=== PATIENT | female | born 2000 | race Caucasian/White ===

== ENCOUNTER 2021-11-30 10:33 | Outpatient (CLI) | payer OTHER, SELFPAY ==
[2021-11-30 14:16] LABS: Hepatitis B Surface Antigen* Negative (Negative)
[2021-11-30 14:26] LABS: HIV 1/2/P24 Combo Screen* Negative (Negative)
[2021-11-30 14:34] LABS: Hepatitis C Virus Antibody* Negative (Negative)
[2021-11-30 14:41] LABS: Chlamydia DNA Amplified* NOT DETECTED (No Detected); GC DNA Amplified* NOT DETECTED (No Detected)
[2021-12-01 17:42] LABS: Varicella-Zoster Virus Ab, IgG 600.8 IV
[2021-12-01 17:45] LABS: Rubella Antibody IgG 13.8 IU/mL
[2021-12-01 21:11] LABS: Rapid Plasma Reagin (RPR) Non Reactive (Non Reactive)
== END 2021-11-30 10:34 | disposition home or self-care (01) ==
PROVIDERS: PCP Family Medicine; Visit Provider Advanced Practice Midwife
DX: Z34.91 Encounter for supervision of normal pregnancy, unspecified, first trimester (principal); Z3A.09 9 weeks gestation of pregnancy
CPT/HCPCS: 76817; 86592; 86703; 86762; 86787; 86803; 86850; 86900; 86901; 87086; 87340; 87491; 87591; 88174

== ENCOUNTER 2022-02-19 08:14 | Outpatient (CLI) | payer OTHER, SELFPAY ==
--- NOTE | 2022-02-19 08:15 | CRLHL7_ITS ---
For Patients: As a result of the Century Cures Act, medical imaging exams and procedure reports are released immediately into your electronic medical record. You may view this report before your referring provider. If you have questions, please contact your health care provider. OBSTETRICAL ULTRASOUND, 02/19/2022 LMP: 09/30/2021. STEVAN by LMP: 07/07/2022. GA: 20 w, 2 d. . P: 0. INDICATION: Supervision of normal . FINDINGS: position: Vertex. Cervix: Visualized. Technique: Transvaginal. Length of closed cervix: 4.5 cm. Placenta/cord: Posterior. Technique: Transabdominal. Umbilical Cord: 3-vessel cord. Placenta insertion: Central. Amniotic Fluid: 1.7 cm SDP (greater than/equal to: 2- less than 8 cm). 5.9 cm LUCAS. SURVEY: Observed Structures Cerebellum: No. Cisterna Magna: No. Nuchal Fold: No. Lateral Ventricle Yes. CSP: Yes. Midline Falx: Yes. Choroid Plexus: Yes. Spine: Yes. Abdomen: Stomach: Yes. Abd Cord Insertion: Yes. Urinary Bladder: Yes. Kidneys: Yes. Diaphragm: Yes. Face: Nose/Lips: No. Orbital view: No. Profile: Yes. Limbs: Upper Extremities: Yes. Lower Extremities: Yes. Hands: Yes. Feet: Yes. Vascular: Four-Chamber Heart: Yes. LVOT: Yes. RVOT: poorly seen 3VV: No. 3VTV: No. BPD: 4.6 cm. 19 w 6 d, 32 percent. HC: 17.5 cm. 20 w 0 d, 29 percent. AC: 15.6 cm. 20 w 5 d, 59 percent. FL: 3.5 cm. 21 w 1 d, 73 percent. FL/AC: 22.75 percent. HC/AC Ratio: 1.12. Heart rate: 152 beats per minute. age by this US: 20 w 3 d. STEVAN by this US: 07/06/2022. EFW: 377.86g. Weight: 13 oz. Percentile by STEVAN: 74 percent. The presence of oligohydramnios limits anatomic survey. The placenta is located posteriorly however, the edge of the placenta is difficult to assess in relationship to the cervix given lack of amniotic fluid. Additionally, the facial views and posterior fossa measurements could not be obtained. The right ventricular outflow tract is suboptimally seen. IMPRESSION: 1) Single live intrauterine gestation with composite gestational age of 20 weeks 3 days. STEVAN of 07/06/2022. 2) Oliqohydramnios. Single deepest pocket is 1.7 cm. LUCAS 5.9 cm. Limited anatomic survey given lack of amniotic fluid. Poor visualization right ventricular outflow tract. The face is poorly seen. The posterior fossa measurements could not be obtained. Posterior fossa poorly seen. Additionally, the placenta relationship to the cervix could not be visualized as well. Lorena Martinez M.D. Diagnostic/Breast Radiologist [email or web address] Transcribed: 11:45 a.m. JR/Dictated by: Lorena Martinez MD @ 02/20/2022 8:52:00 AM (Electronically Signed)
--- OUTSIDE RECORDS SUMMARY | 2022-02-19 08:17 | XMS_ITS | Clinical Summary ---
:2000 Author Organization [facility] [place] [address] Care Team Providers Name Role Phone Abhay Miller Primary Care Provider Unavailable Allergies Active Allergy Reactions Severity Noted Date Comments Sulfa (Sulfonamide Antibiotics) Hives High 0 Medications Medication Sig Dispensed Refills Start Date End Date Status loratadine (CLARITIN) Place 1 tablet on 0 12/08/2009 Active 10 mg orally the tongue once disintegrating daily. tabletIndications: Allergic rhinitis, cause unspecified fluticasone (50 mcg per Inhale 2 Sprays 1 Bottle 11 05/27/2015 Active actuation) nasal into both solution nostrils once (FLONASE)Indications: daily. . Other allergic rhinitis albuterol HFA (PRO-AIR; INHALE TWO PUFFS 18 g 0 2 Active VENTOLIN; PROVENTIL) 90 BY MOUTH EVERY mcg/actuation FOUR HOURS inhalerIndications: NEEDED FOR COUGH Exercise induced bronchospasm fluticasone propionate Inhale 2 Puffs by 10.6 g 2 2 Active (FLOVENT) 44 mouth 2 times mcg/Actuation daily. inhalerIndications: Mild persistent asthma without complication Active Problems Problem Noted Date Mild persistent asthma without complication 03/31/2013 Allergic rhinitis, cause unspecified 12/08/2009 Immunizations Name Administration Dates Next Due DTaP 01/13/2004, 1998, 1998, 06/1997 DTaP-HIB (TriHIBIT) 07/25/1999 HIB-HepB (Comvax) 1998, 1998 Hepatitis B (Peds) 1998 Inactivated Polio Vaccine 01/13/2004, 1998, 1998 , 1998 MMR 01/13/2004, 07/25/1999 Tdap 01/12/2011 Varicella Vaccine 01/12/2011, 01/30/1999 Family History Medical History Relation Name Comments Good Health Brother Good Health Father Allergies Maternal Aunt Allergies Maternal Grandfather Allergies Maternal Uncle Good Health Mother Good Health Sister Relation Name Status Comments Brother Father Maternal Aunt Maternal Grandfather Maternal Uncle Mother Sister Social History Tobacco Use Types Packs/Day Years Used Date Never Smoker Smokeless Tobacco: Never Used Tobacco Cessation: Counseling Given: Yes Alcohol Use Standard Drinks/Week Comments Yes 0 (1 standard drink = 0.6 oz pure alcoho l) Alcohol Habits Answer Date Recorded How often do you have a drink containing alcohol? Monthly or less 03/31/2019 How many drinks containing alcohol do you have on a 1 or 2 03/31/2019 typical day when you are drinking? How often do you have six or more drinks on one Less than mo nthly 03/31/2019 occasion? Comment: Not asked Sex Assigned at Date Recorded Not on file Obstetrics History Para Term AB IAB SAB Ectopic Multiple Living Live Births 1 1 1 Date Outcome GA Total Labor/2nd/3rd Weight Sex Delivery Anes PTL Guillermina A 1 A5 Name Clin Labor 09/02 Last Filed Vital Signs Vital Sign Reading Time Taken Comments Blood Pressure 130/84 05/25/2021 10:14 AM PROPOSAL EDITOR Pulse 94 05/25/2021 10:14 AM PROPOSAL EDITOR Temperature 36.7 ??C (98.1 ??F) 05/27/2015 3:48 PM PROPOSAL EDITOR Respiratory Rate - - Oxygen Saturation 95% 05/25/2021 10:14 AM PROPOSAL EDITOR Inhaled Oxygen Concentration - - Weight 117.5 kg (259 lb) 05/25/2021 10:14 AM PROPOSAL EDITOR Height 170.7 cm (5' 7.21) 05/25/2021 10:14 AM PROPOSAL EDITOR Body Mass Index 40.32 05/25/2021 10:14 AM PROPOSAL EDITOR Plan of Treatment Health Maintenance Due Date Last Done Comments COVID-19 vaccine series (#1) 1998 Pneumococcal series for age 19-64 (1 01/12/2004 - PCV) HPV series for age 9-26 (1 - 2-dose 2009 series) Hepatitis C screening for age 18-79 01/12/2016 Chlamydia for age 16-24 03/31/2020 03/31/2019 Tetanus booster 01/12/2021 01/12/2011 Influenza for age 9-49 01/18/2022 Pap test for age 21-65 03/31/2022 03/31/2019 BMI (ht and wt on same day) for age 0105/25/2022 05/25/2021, 03/31/2019 18+ Depression screening for age 12+ 05/25/2022 05/25/2021, 04/2019, 05/27/2015 Tdap Completed 01/12/2011 Results Not on filefrom Last 3 Months Insurance Payer Benefit Plan / Subscriber ID Effective Dates Phone Addre ss Type Group MEDICA MEDICA CHOICE [id number] 2021-Present [address] [place] [address] Care Teams Medical Research Associate Relationship Specialty Start Date End Date Abhay Miller PCP - General 06/20/20
== END 2022-02-19 08:15 | disposition home or self-care (01) ==
LOC: US 08:15
PROVIDERS: PCP Family Medicine; Visit Provider Advanced Practice Midwife
DX: O41.02X0 Oligohydramnios, second trimester, not applicable or unspecified (principal); Z3A.20 20 weeks gestation of pregnancy
CPT/HCPCS: 76805; 76817

== ENCOUNTER 2022-07-11 03:52 | Outpatient (CLI) | payer OTHER, SELFPAY ==
[2022-07-11 04:10] VITALS: BP 126/68; PULSE 103; RESP 18; TEMP 36.6
[2022-07-11 04:55] LABS: Amnisure Rom* Negative
[2022-07-11] MEDS: hydrOXYzine pamoate 25 MG CAPSULE 100 MG PO (05:54)
[2022-07-11] MEDS: MORPHINE 10 MG/ML inj IM (05:54)
--- NOTE | 2022-07-18 14:43 | PC.OBNST ---
NST Note NST Note Start: 07/11/22 04:00 Freq: ONCE Status: Discharge Protocol: Document 07/11/22 07:30 MMB (Rec: 07/18/22 14:43 MMB [id number]) NST Note 2 Para (# of births) 0 EDC 07/11/22 Gestational Age In Weeks & Days 41 Weeks & 0 Days Patient Presented with Complaint(s) of Contractions/cramping Other Complaints Late entry: patient is 40.4 at time of this documentation Reactive Yes Appropriate for Gestational Age Yes RN Ja Mcgee RN Date 07/11/22 Reactive Yes Appropriate for Gestational Age Yes TONY Hagan RN Date 07/11/22 OB NST charge Yes Complete NST Note via Write Note Yes The provider's electronic signature indicates the NST is reactive/appropriate for gestational age. *Note to provider: If an addendum is required, open the patient's chart and click on the note under the Nurse/Allied Health tab.
== END 2022-07-11 07:53 | disposition home or self-care (01) ==
LOC: OB OUT 03:53 → OB 03:55
PROVIDERS: PCP Family Medicine; Visit Provider Family Medicine
DX: O47.1 False labor at or after 37 completed weeks of gestation (principal); Z3A.40 40 weeks gestation of pregnancy
CPT/HCPCS: 59025; 84112; 99213; A9270; J2270

== ENCOUNTER 2022-07-12 06:15 | Inpatient (IN) | payer OTHER, SELFPAY ==
[2022-07-11 22:59] VITALS: BP 129/64; PULSE 95; RESP 18; TEMP 36.6
[2022-07-12] VITALS (50 sets, daily range): BP systolic 98–141; BP diastolic 49–79; PULSE 95–133; RESP 18; TEMP 36.4–37.1; BMI 41.5
[2022-07-12] MEDS: MORPHINE 10 MG/ML inj IM (01:38)
[2022-07-12] MEDS: hydrOXYzine pamoate 25 MG CAPSULE 100 MG PO (01:38)
[2022-07-12] MEDS: AMPICILLIN 2 GM in 0.9 % SODIUM CHLORIDE Mini-bag 100 ML IVPB (06:56)
[2022-07-12] MEDS: LACTATED RINGERS 1000 ML 1,000 ML 125 ML IV ×3 (06:56→15:25)
[2022-07-12 08:28] LABS: SARS PCR* Negative SARS-CoV-2 (Negative)
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
[2022-07-12] MEDS: OXYTOCIN 30 unit/500 ML in NS 30 UNIT/500 ML BAG IVPB (10:57)
[2022-07-12] MEDS: AMPICILLIN 1 GM in 0.9 % SODIUM CHLORIDE Mini-bag 100 ML IVPB ×3 (10:59→19:16)
[2022-07-12 11:30] LABS: Basophils Absolute Auto 0.02 K/uL (0.00-0.30); Basophils Percent Auto 0.2 % (0.0-3.0); Eosinophils Absolute Auto 0.07 K/uL (0.00-0.50); Eosinophils Percent Auto 0.7 % (0.0-7.0); Hematocrit 28.2 % (33.0-51.0); Immature Granulocytes Abs Auto 0.04 K/uL (0.00-0.30); Immature Granulocytes Pct Auto 0.4 %; Lymphocytes Percent Auto 11.7 % (20-44); Mean Corpuscular HGB Conc 32 gm/dL (32-36); Mean Corpuscular Hemoglobin 27 pg (26-34); Mean Corpuscular Volume 84 fL (80-100); Platelet Count* 275 K/uL (140-440); RDW Coefficient of Variation % 14.5 % (11.5-15.5); Red Blood Count 3.37 m/uL (4.00-5.20); Slide Review Reflex No; White Blood Count* 10.59 K/uL (4.50-11.00)
--- NOTE | 2022-07-12 13:15 | PM.ANBPRC ---
[facility] Medical History (Updated 07/12/22 @ 09:22 by Tammy Ryder MD) Incomplete spontaneous Surgical History (Updated 11/30/21 @ 14:58 by Jana Ferrara CNM) No history of previous surgery [place] teeth extracted Family History (Updated 11/30/21 @ 15:00 by Jana Ferrara CNM) Mother Miscarriage Diabetes Father Healthy adult Social History (Updated 11/30/21 @ 15:02 by Jana Ferrara CNM) Narrative: Non-smoker Are you following a diet prescribed by a doctor: No Are you following a special diet: No Previous occupational history: Beautician Known occupational exposures/hazards details: concerns about chemical exposure from products at work Highest level of school completed/degree received: Associate degree: occupational, technical, vocational program Physical activity type: walking and bicycling Physical activity type details: stationary bike How many days of moderate to strenuous exercise, like a brisk walk, did you do in the last 7 days: 1 Smoking Status: Never smoker Do you use any of these nicotine containing products: None Non-prescribed substance use: denies use Caffeine: No Little interest or pleasure in doing things: not at all Feeling down, depressed, or hopeless: not at all Meds Home Medications and Allergies Home Medications Medication Instructions Recorded Confirmed Type albuterol sulfate 90 mcg/actuation 2 puff inhalation PRN 11/30/21 07/11/22 History aerosol inhaler fluticasone propionate 44 2 puff inhalation PRN 11/30/21 07/11/22 History mcg/actuation HFA aerosol inhaler (Flovent HFA) prenat.vits,francheska,[id number] 1 tab PO QDAY 12/25/21 07/11/22 History aspirin 81 mg chewable tablet 81 mg PO QDAY 02/19/22 07/11/22 History Allergies Allergy/AdvReac Type Severity Reaction Status Date / Time Sulfa Antibiotics Allergy Unknown Uncoded 02/19/22 08:30 Results Labs Labs: Laboratory Results - last 24 hr 07/12/22 07/12/22 07/12/22 07:41 11:20 11:20 WBC 10.59 RBC 3.37 L Hgb 9.0 L Hct 28.2 L MCV 84 MCH 27 MCHC 32 RDW Coeff of Ghassan 14.5 Plt Count 275 Neut % (Auto) 83.0 H Lymph % (Auto) 11.7 L [place] % (Auto) 4.0 Eos % (Auto) 0.7 Baso % (Auto) 0.2 Neut # (Auto) 8.80 H Lymph # (Auto) 1.20 [place] # (Auto) 0.40 Eos # (Auto) 0.07 Baso # (Auto) 0.02 SARS-CoV-2 (PCR) Negative SARS-CoV-2 Blood Type A Positive Antibody Screen NEGATIVE Vital Signs Vital Signs: Last Vital Signs Temp 98.8 F 07/12/22 11:01 Pulse 117 H 07/12/22 13:14 Resp 18 07/12/22 06:35 BP 125/55 L 07/12/22 13:14 Weight: 123.831 kg Height: 172.72 cm Anesthesia Procedures Epidural Insertion Patient Location: OB Start Time: 12:30 Stop Time: 13:15 Start Date: 07/12/22 Stop Date: 07/12/22 Reason for Block: procedure for pain Patient Position: sitting Performed By: Vinay Davidson Preanesthetic Checklist: IV checked, risks and benefits discussed, surgical consent, monitors and equipment checked, pre-op evaluation, timeout performed and anesthesia consent Prep: chlorhexidine gluconate Monitoring: blood pressure monitoring, continuous pulse oximetry and heart rate Approach: midline Vertebral Space: lumbar (1-5) Epidural Technique: ALESHIA air Needle Type: Tuohy needle Injection Technique: continuous catheter Needle gauge: 17 Needle Length (cm): 10 cm Needle Insertion Depth (cm): 7 Catheter Gauge: 19 Catheter Type: multi-orifice Catheter at skin depth (cm): 13 Test Dose Result: negative and lidocaine 1.5% with epinephrine 1 to 200,000
[2022-07-12] MEDS: ROPIVACAINE 0.2% 100 ml 100 ML 12 MG EPIDURAL (13:17)
[2022-07-12] MEDS: LIDOCAINE 2% (PF) 5 ML VIAL EPIDURAL (13:17)
[2022-07-12] MEDS: ROPIVACAINE 0.2 % PF 10 ML INJ 20 MG EPIDURAL (13:17)
[2022-07-12] MEDS: PHENYLEPHRINE 100 MCG/ML SYRINGE IVP (14:06)
[2022-07-12] MEDS: LIDOCAINE 1 % PF 30 ML INJECTION (20:59)
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
[2022-07-12] MEDS: IBUPROFEN 600 MG TABLET PO (21:30)
[2022-07-13 00:30] VITALS: BP 134/74; PULSE 118; RESP 16; TEMP 36.8; O2SAT 97
[2022-07-13 04:00] VITALS: BP 119/74; PULSE 92; RESP 15; TEMP 36.9; O2SAT 98
[2022-07-13 08:00] VITALS: BP 127/75; PULSE 99; RESP 18; TEMP 36.3; O2SAT 97
[2022-07-13 08:45] LABS: Hemoglobin* 8.3 gm/dL (12.0-16.0)
[2022-07-13 11:50] VITALS: BP 112/68; PULSE 112; RESP 18; O2SAT 99
--- NOTE | 2022-07-13 17:30 | PM.OBPNVD1 ---
OB - PN:Subj Subjective Time Seen by Provider: 17:30 Date Seen: 07/13/22 Patient comments OB post-: no complaints and pain well controlled [place] infant status: feeding status: exclusively OB - PN: Obj Exam Physical Exam: Vital signs: Temp Pulse Resp BP Pulse Ox O2 Del Method 97.4 F L 112 H 18 112/68 99 07/13/22 08:00 07/13/22 11:50 07/13/22 11:50 07/13/22 11:50 07/13/22 11:50 07/13/22 11:50 Constitutional: Constitutional: no acute distress and cooperative Routine HEENT Exam: Head: Present atraumatic and normal inspection Routine Respiratory Exam: Respiratory: Present CTA bilaterally; Absent crackles or rales Routine Cardiovascular Exam: Cardiovascular: Present RRR, S1 and S2; Absent murmur Routine Abdominal Exam: Fundus: Present firm Routine Neurological Exam: Neurological: Present alert Routine Psychiatric Exam: Psychiatric: Present normal affect OB - PN: Obj Data Labs Labs: Laboratory Results - last 24 hr 07/13/22 08:36 Hgb 8.3 L OB - PN: A/P Vaginal Delivery Assessment and Plan (1) : Status: Acute (2) GBS (group B Streptococcus carrier), +RV culture, currently : Status: Acute (3) Anemia affecting : Status: Acute Plan - routine cares- - Add iron supplementation - continue breast feeding support. Plan day: 1 Plan: routine care
[2022-07-13 20:15] VITALS: BP 112/75; PULSE 97; RESP 18; TEMP 36.4; O2SAT 96
[2022-07-14 00:30] VITALS: BP 106/72; PULSE 100; RESP 18; TEMP 36.8; O2SAT 97
--- NOTE | 2022-07-14 10:04 | P.DS_ITS ---
DS: Providers Provider Time Seen by Provider: 10:05 Date Seen: 07/14/22 Date of admission: 07/12/22 06:15 Primary care physician: Bud Conde MD Admitting Clinician: Tammy Ryder MD Attending Physician on discharge: Brandie Whittaker MD Date of Discharge: 07/14/22 DS: Diagnosis Discharge Diagnosis (1) : Status: Acute (2) Oligohydramnios: Status: Acute (3) GBS (group B Streptococcus carrier), +RV culture, currently : Status: Acute (4) Anemia affecting : Status: Acute Exam Narrative: Exam Narrative: General appearance: Well-appearing adult female sitting up in bed. Alert, oriented appropriate. No acute distress. HEENT: EOMI, no conjunctival injection or discharge. Mucous membranes moist. Neck: Supple Cardiovascular: Regular rate and rhythm, no rubs, murmurs or extra heart sounds. Pulmonary: Clear to auscultation bilaterally. No wheezes, rales or rhonchi. Abdomen: Soft, nontender, nondistended. fundus at the level of the umbilicus. MSK: Moves all extremities. Extremities: Warm and well perfused. Trace edema in the lower extremities bilaterally. Skin: Warm and well perfused. No rashes present on the exposed skin. Neuro: He cranial nerves 2-12 grossly intact. No observable deficits. Psych: Appropriate affect. Const: Vital Signs, click to edit/add: Vital Signs - 24 hr 07/13/22 11:50 07/13/22 20:15 07/14/22 00:30 Temperature 97.6 F 98.2 F Pulse Rate [Blood Pressure Cuff] 112 H 97 100 Respiratory Rate 18 18 18 Blood Pressure [Ri ght Arm] 112/68 112/75 106/72 Pulse Oximetry 99 96 97 Oxygen Delivery Me thod Room Air Room Air Room Air OB - DS: Summary Hospital Course Hospital Course: The patient is a 22 year old G 2 now P 1 at 40+5 weeks gestation that was admitted to the Center on 07/12/22 for labor. She had an uncomplicated vaginal delivery on 07/13/22 . GBS positive and received adequate abx. Hgb 8.3 after delivery and she will be discharged with oral iron supplementation. She delivered a viable female infant. She is breast feeding. the patient has done well. [place] Gender: Female Time Spent with Patient Time attestation: Total time spent providing and/or coordinating discharge services: Discharge Plan Discharge Disposition: Home, Self-Care Date of Admission: 07/12/22 06:15 Attending Provider on Discharge: Brandie Wang Primary Care Provider: Bud Conde Condition: Stable Anticipated Discharge Date/Time: 07/14/22 09:58 Discharge Medications: New acetaminophen 500 mg Tablet 1,000 mg PO Q6H PRN30 Days Qty: 30 0RF docusate sodium 100 mg Capsule 100 mg PO DAILY 30 Days Qty: 30 0RF ibuprofen 600 mg Tablet 600 mg PO Q6H PRN30 Days Qty: 30 0RF ferrous gluconate 324 mg (38 mg iron) tablet 324 mg PO DAILY Qty: 30 1RF Continued albuterol sulfate 90 mcg/actuation HFA aerosol inhaler 2 puff inhalation PRN Label Comments: INHALE TWO PUFFS BY MOUTH EVERY FOUR HOURS NEEDED FOR COUGH fluticasone propionate [Flovent HFA] 44 mcg/actuation HFA aerosol inhaler 2 puff inhalation PRN prenat.vits,francheska,[id number] Tablet 1 tab PO QDAY Discontinued aspirin 81 mg tablet,chewable 81 mg PO QDAY Discharge Orders: Discharge Order (Routine); Ordered 07/14/22 Ordered By: Brandie Wang Patient Education: OB Vaginal/Breast Feeding Activity Level: Activity as Tolerated Discharge Diet: Regular Follow Up Appointments: Bud Conde MD [Primary Care Provider] - (F/u Dr. Ryder for 6 week post- visit) Forms: [employer] Info Instructions
== END 2022-07-14 12:00 | disposition home or self-care (01) | DRG 806 ==
LOC: OB OUT 07:25 → OB 07:25
PROVIDERS: Admitting Provider Family Medicine; PCP Family Medicine; Visit Provider Family Medicine
DX: O99.824 Streptococcus B carrier state complicating childbirth (principal); O41.03X0 Oligohydramnios, third trimester, not applicable or unspecified; O70.1 Second degree perineal laceration during delivery; O99.02 Anemia complicating childbirth; D64.9 Anemia, unspecified; Z3A.40 40 weeks gestation of pregnancy; Z37.0 Single live birth
CPT/HCPCS: 01967; 36415; 85018; 85025; 86850; 86900; 86901; 87635; 99213; A9270; J0290; J2001; J2270; J2370; J2795; J7120

== ENCOUNTER 2022-08-22 13:59 | Emergency (ER) | payer OTHER, SELFPAY ==
[2022-08-22 14:09] VITALS: BP 119/76; PULSE 87; RESP 18; TEMP 35.8; O2SAT 95; BMI 38.7
[2022-08-22 14:22] VITALS: BP 111/72; PULSE 77; RESP 18; O2SAT 96
--- NOTE | 2022-08-22 14:27 | CRLHL7_ITS ---
For Patients: As a result of the Century Cures Act, medical imaging exams and procedure reports are released immediately into your electronic medical record. You may view this report before your referring provider. If you have questions, please contact your health care provider. INDICATION: Right-sided thoracic pain TECHNIQUE: Chest 2 views. COMPARISON: None FINDINGS: Cardiovascular and mediastinum: Heart size and vasculature are normal in caliber and appearance. Mediastinum is within normal limits. Lungs and pleural spaces: Lungs are clear. No sign of infiltrate or mass. No sign of pleural effusion. No pneumothorax. Bones and soft tissues: Grossly normal thoracic spine. IMPRESSION: No acute pulmonary or cardiac abnormalities. Grossly normal thoracic spine. Dictated by Claude Arteaga MD @ 08/22/2022 3:15:34 PM Dictated by: Claude Arteaga MD @ 08/22/2022 15:15:41 (Electronically Signed)
--- NOTE | 2022-08-22 14:29 | ED.GENADULT ---
HPI - General Adult General Time Seen by Provider: 14:29 Date Seen: 08/22/22 Chief complaint: Abdominal Pain Stated complaint: Back, stomach pain, 6w Time Seen by Provider: 08/22/22 14:03 Source: patient Mode of arrival: ambulatory Limitations: no limitations History of Present Illness HPI narrative: Patient is a 22-year-old female who has got history of bronchospasm, she had a vaginal 6 weeks ago. Things are going well for her. Would last few days she has had some right periscapular pain, comes and goes, gone it sometimes and present significantly at other times it was little bit worse this morning. She has had no fever chills cough, no abdominal pain, no lochia any further no chills or fever. She has not any COVID symptoms no cough , no shortness of breath Related Data Home Medications Medication Instructions Recorded Confirmed albuterol sulfate 90 mcg/actuation 2 puff inhalation PRN 11/30/21 07/11/22 aerosol inhaler fluticasone propionate 44 2 puff inhalation PRN 11/30/21 07/11/22 mcg/actuation HFA aerosol inhaler (Flovent HFA) prenat.vits,francheska,[id number] 1 tab PO QDAY 12/25/21 07/11/22 Previous Rx's Medication Instructions Recorded acetaminophen 500 mg tablet 1,000 mg PO Q6H PRN 30 days #30 07/14/22 tabs docusate sodium 100 mg capsule 100 mg PO DAILY 30 days #30 caps 07/14/22 ferrous gluconate 324 mg (38 mg 324 mg PO DAILY #30 tabs 07/14/22 iron) tablet ibuprofen 600 mg tablet 600 mg PO Q6H PRN 30 days #30 tabs 07/14/22 Allergies Allergy/AdvReac Type Severity Reaction Status Date / Time Sulfa (Sulfonamide Allergy Verified 08/22/22 14:09 Antibiotics) Review of Systems Status of ROS: Reports: 6 or more systems reviewed and unremarkable except as noted in History and below [facility] Medical History 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 without complication (ICD-10) Surgical History No history of previous surgery [place] teeth extracted ?K08.409 - Partial loss of teeth, unspecified cause, unspecified class (ICD-10) Family History Mother Miscarriage Diabetes Father Healthy adult Social History Narrative: Non-smoker Are you following a diet prescribed by a doctor: No Are you following a special diet: No Previous occupational history: Beautician Known occupational exposures/hazards details: concerns about chemical exposure from products at work Highest level of school completed/degree received: Associate degree: occupational, technical, vocational program Physical activity type: walking and bicycling Physical activity type details: stationary bike How many days of moderate to strenuous exercise, like a brisk walk, did you do in the last 7 days: 1 Smoking Status: Never smoker Do you use any of these nicotine containing products: None Second hand tobacco smoke exposure: No How often do you have a drink containing alcohol: never How often do you have six or more drinks on one occasion: Never AUDIT-C Alcohol total score: 0 Non-prescribed substance use: denies use Caffeine: No Little interest or pleasure in doing things: not at all Feeling down, depressed, or hopeless: not at all service: No Exam Narrative: Exam Narrative: Objective: Patient is no apparent distress very pleasant Noncyanotic Vital signs unremarkable O2 sat 96% room air Patient has clear chest bilaterally to auscultation She has some mild palpable tenderness along her rhomboid muscle on the right Good peripheral perfusion Neurologic nonfocal Const: Vital Signs, click to edit/add: Vital Signs - 24 hr 08/22/22 14:09 08/22/22 14:22 Temperature 96.4 F L Pulse Rate [Pulse Oximeter] 87 77 Respiratory Rate 18 18 Blood Pressure [Le ft Upper Arm] 119/76 111/72 Pulse Oximetry 95 96 Oxygen Delivery Me thod Room Air Room Air Course Vital Signs Vital signs: Initial Vital Signs Temperature 96.4 F L 08/22/22 14:09 Temperature Source Temporal Artery Scan 08/22/22 14:09 Pulse Rate 87 08/22/22 14:09 Pulse Rhythm Regular 08/22/22 14:09 Respiratory Rate 18 08/22/22 14:09 Blood Pressure 119/76 08/22/22 14:09 Blood Pressure Mean 90 08/22/22 14:09 Blood Pressure Position Supine 08/22/22 14:09 Pulse Oximetry 95 08/22/22 14:09 Oxygen Delivery Method Room Air 08/22/22 14:09 Vital Signs Temperature 96.4 F L 08/22/22 14:09 Pulse Rate 87 08/22/22 14:09 Respiratory Rate 18 08/22/22 14:09 Blood Pressure 119/76 08/22/22 14:09 Pulse Oximetry 95 08/22/22 14:09 Oxygen Delivery Method Room Air 08/22/22 14:09 Temperature 96.4 F L 08/22/22 14:09 Pulse Rate 77 08/22/22 14:22 Respiratory Rate 18 08/22/22 14:22 Blood Pressure 111/72 08/22/22 14:22 Pulse Oximetry 96 08/22/22 14:22 Oxygen Delivery Method Room Air 08/22/22 14:22 Medical Decision Making MDM Narrative Medical decision making narrative: Patient is a 22 year white female who has had a 6 week ago vaginal the patient at this time has some rhomboid muscle thoracic spine discomfort. On and off at times better with Advil this morning. History of bronchospasm as well. I do not hear any wheezing or other abnormality now. I think an x-ray be appropriate to exclude other pulmonary pathology such as pneumothorax or pneumonia. I doubt these are present. But I do think that some anti-inflammatory if he has earned x-ray is negative would be appropriate as well even a Medrol Dosepak might be helpful. Please see addendum Addendum: Patient describes her discomfort in her chino rhomboid area on the right. She also reports to me that she has had some epigastric tenderness intermittently. On examination now she has no specific point tenderness in her abdomen and no rebound no palpable mass. I think at this point I would be reasonable to observe try the ibuprofen for her back. She can take some antacid as well. If she continues to have symptoms or other concern then recommend blood work as well as an ultrasound of her abdomen rule out gallbladder issue, but at this point I do not think that is obvious and would monitor symptoms. Discharge Plan Discharge Clinical Impression: Back pain, thoracic Patient Disposition: Home w/ Parent or Adult Condition: Stable Additional Instructions: Light activity, Advil 3 3 times a day for the next 5 days, follow-up with primary care in the next 2-3 days for reassessment certainly sooner change concerns worsening return to ED. Patient comfortable plan will follow up as directed. Would recommend an antacid such as Tums as well Activity Level: Light activity Discharge Diet: Regular Prescriptions: No Action albuterol sulfate 90 mcg/actuation HFA aerosol inhaler 2 puff inhalation PRN Patient Comments: INHALE TWO PUFFS BY MOUTH EVERY FOUR HOURS NEEDED FOR COUGH fluticasone propionate [Flovent HFA] 44 mcg/actuation HFA aerosol inhaler 2 puff inhalation PRN prenat.vits,francheska,[id number] Tablet 1 tab PO QDAY acetaminophen 500 mg Tablet 1,000 mg PO Q6H PRN30 Days Qty: 30 0RF docusate sodium 100 mg Capsule 100 mg PO DAILY 30 Days Qty: 30 0RF ibuprofen 600 mg Tablet 600 mg PO Q6H PRN30 Days Qty: 30 0RF ferrous gluconate 324 mg (38 mg iron) tablet 324 mg PO DAILY Qty: 30 1RF Stand Alone Forms: [employer] Info Instructions
== END 2022-08-22 15:00 | disposition home or self-care (01) ==
PROVIDERS: Emergency Provider Family Medicine; PCP Family Medicine
DX: R10.9 Unspecified abdominal pain (principal); M54.6 Pain in thoracic spine
CPT/HCPCS: 71046; 99283

== ENCOUNTER 2022-09-04 19:57 | Observation (INO) | payer OTHER, SELFPAY ==
[2022-09-04 20:02] VITALS: BP 117/66; PULSE 106; RESP 18; TEMP 37.2; O2SAT 97
[2022-09-04] MEDS: LACTATED RINGERS 1000 ML 1,000 ML 200 ML IV (20:30)
--- NOTE | 2022-09-04 20:52 | P.IMHP_ITS ---
Hospitalist- H&P: HPI History of Present Illness Time Seen by Provider: 20:52 Date Seen: 09/04/22 Chief complaint: Direct Admit Narrative: Altagracia Rodriguez is a 22 year old female who is six weeks and about a week out from a lap ric and ERCP who developed fevers and night sweats. Altagracia delivered a healthy girl on 07/12/2022 by normal spontaneous vaginal delivery that was augmented Pitocin. About a week after she delivered her baby, she developed right flank pain that worsened over next 4 weeks. On 08/24/2022 she was found to have choledocholithiasis for which she was sent up to [facility]. On 08/26/2022 she had a laparoscopic cholecystectomy and the next day she had an ERCP with biliary stenting. She was sent home Saturday. She had some cold sweats that day before leaving the hospital, but her temperature at the hospital was fine. Since then every evening she gets chills, feels feverish with malaise and then in the middle of the night will wake up ?sweating bullets.? She has some incisional pain, but it has been improving. She does also note some epigastric pain that started after surgery. Since coming home from the hospital she has had 3-4 very watery stools each day. There is no blood or melena. She has been following a low-fat diet since the ERCP and is finding it difficult to get enough calories per breast-feeding. Since being in the hospital a week ago she has been struggling with breast-feeding. She also feels thirsty and dehydrated. 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 without complication (ICD-10) Vaginal delivery (~05/2022) ?O80 - Encounter for full-term uncomplicated delivery (ICD-10) Surgical History (Updated 09/04/22 @ 22:12 by Jessica Barnes MD) H/O dilation and curettage ?Z98.890 - Other specified postprocedural states (ICD-10) History of ERCP (~08/27/22) ?Z98.890 - Other specified postprocedural states (ICD-10) Hx laparoscopic cholecystectomy (~08/26/22) ?Z90.49 - Acquired absence of other specified parts of digestive tract (ICD- 10) [place] teeth extracted ?K08.409 - Partial loss of teeth, unspecified cause, unspecified class (ICD- 10) Family History Mother Miscarriage Diabetes Father Healthy adult Social History (Updated 09/04/22 @ 22:18 by Jessica Barnes MD) Narrative: . Non-smoker. Does not drink alcohol or use recreational drugs. 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 Are you following a diet prescribed by a doctor: No Are you following a special diet: No Previous occupational history: Beautician Known occupational exposures/hazards details: concerns about chemical exposure from products at work Highest level of school completed/degree received: Associate degree: occupational, technical, vocational program Physical activity type: walking and bicycling Physical activity type details: stationary bike How many days of moderate to strenuous exercise, like a brisk walk, did you do in the last 7 days: 1 Smoking Status: Never smoker Do you use any of these nicotine containing products: None Second hand tobacco smoke exposure: No How often do you have a drink containing alcohol: never How often do you have six or more drinks on one occasion: Never AUDIT-C Alcohol total score: 0 Non-prescribed substance use: denies use Caffeine: No Little interest or pleasure in doing things: not at all Feeling down, depressed, or hopeless: not at all service: No Meds Home Medications and Allergies Home Medications Medication Instructions Recorded Confirmed Type albuterol sulfate 90 mcg/actuation 2 puff inhalation PRN 11/30/21 09/04/22 History aerosol inhaler prenat.vits,francheska,[id number] 1 tab PO QDAY 12/25/21 09/04/22 History Allergies Allergy/AdvReac Type Severity Reaction Status Date / Time Sulfa (Sulfonamide Allergy Verified 08/22/22 14:09 Antibiotics) Exam Narrative: Exam Narrative: General: No acute distress. Awake alert oriented x3. HEENT: Normocephalic atraumatic, pupils equally round and reactive to light and accommodation. Oropharynx clear. Mucous membranes are slightly dry. No cervical lymphadenopathy, thyromegaly or carotid bruits. No JVD. Cardiovascular: Regular rate and rhythm. No murmurs, gallops, or rubs. Chest: No increased work of breathing. Clear to auscultation bilaterally. No crackles or wheezes. Abdomen: Laparoscopic surgical wounds are healing and without erythema. Some bruising near the right upper quadrant, within expectations postoperatively from a laparoscopic cholecystectomy. Bowel sounds present. Soft, nondistended, expected tenderness in the right upper quadrant. More tender in the epigastrium. No hepatosplenomegaly or masses. Extremities: No edema, no cyanosis or clubbing. Skin: Breasts have no induration, abnormal drainage, or dimpling. No jaundice, no pallor, candidal rash is present under left breast, areola and nipple are not involved. Her baby is with her today. I do not appreciate any thrush in the baby's mouth. Const: Vital Signs, click to edit/add: Vital Signs - 24 hr 09/04/22 20:02 Temperature 99 F Pulse Rate [Left R adial] 106 H Respiratory Rate 18 Blood Pressure [Ri ght Arm] 117/66 Pulse Oximetry 97 Oxygen Delivery Me thod Room Air Documenting provider has reviewed patient's vital signs: yes Hospitalist - H&P: Result Labs Labs: Ordering Physician: Tammy Ryder M.D. Date of Service: 09/04/22 Procedure(s): CT abdomen pelvis w con Accession Number(s): [id number] cc: Tammy Ryder M.D.~ For Patients: As a result of the Century Cures Act, medical imaging exams and procedure reports are released immediately into your electronic medical record. You may view this report before your referring provider. If you have questions, please contact your health care provider. INDICATION: Postop fever. TECHNIQUE: CT abdomen and pelvis acquired with 98 cc Isovue 370 IV contrast. COMPARISON: 08/24/2022. FINDINGS: Lower chest: Unremarkable. Liver: Unremarkable. Normal in size and attenuation. No suspicious masses. Gallbladder and bile ducts: Gallbladder is absent. There is pneumobilia. No biliary dilatation. Common bile duct stent is in satisfactory position. Pancreas: Unremarkable. No mass or inflammation. Spleen: Unremarkable. Normal in size. No masses. Adrenal glands: Unremarkable. No nodules. Kidneys: Unremarkable. No suspicious masses, stones, or hydronephrosis. GI tract: Wall thickening present in the transverse colon. Remainder of the GI tract is within normal limits in caliber and appearance. A new metallic linear object is at the origin of the appendix, this could represent a surgical clip. Vasculature: Abdominal aorta is normal in caliber. Mesenteric arteries are patent. Lymph nodes: No lymphadenopathy. Peritoneum/Abdominal Wall: Large area of edema or inflammation is in the central mesenteric fat as demonstrated on series 2, image 71, this is new. Moderate free fluid in the pelvis. No free air. Pelvis: Unremarkable. Bones: Unremarkable for age. IMPRESSION: 1. There are postoperative changes from recent cholecystectomy. No postoperative complications evident in the gallbladder fossa. 2. A new large area of inflammation/edema in the central mesentery. This could represent a large area of fat necrosis. No sign of abscess. 3. Wall edema in the transverse colon adjacent to the mesenteric inflammatory process is present. This could represent secondary colitis which is favored over a primary infection. 4. New linear metallic object at the origin of the appendix could represent a piece of the biliary stent or other surgical clip. Please note that all CT scans at this facility use dose modulation, iterative reconstruction, and/or weight-based dosing when appropriate to reduce radiation dose to as low as reasonably achievable. Dictated by Ruben Squires MD @ 09/04/2022 4:51:30 PM (Electronically Signed) Assessment and Plan Assessment and plan (1) Postoperative fever: Problem comment: Possibly multifactorial including post ERCP pancreatitis and/or necrosis of the omentum. Status: Acute (2) Post-ERCP acute pancreatitis: Problem comment: Admitted for observation with bowel rest and IV fluids of LR at 200 mL/hours. I have ordered clear liquid diet and Ensure Clear since she is breast-feeding and will need some calories. Have also ordered a nutrition consult. Recheck labs in the morning. Status: Suspected (3) Fat necrosis of omentum: Problem comment: I spoke with Dr. Almanza who recommended conservative management. Status: Acute (4) Acute diarrhea: Problem comment: Possibly secondary to recent laparoscopic cholecystectomy verses antibiotics given for the surgery. Check C diff, stool studies. Status: Acute (5) Breast feeding status of mother: Status: Acute (6) Intertriginous candidiasis: Problem comment: Spoke with Dr. Severino Sorensen from [facility] who stated that nystatin cream or Diflucan can be used in breast-feeding mothers. Since she is on clears for pancreatitis, I will use nystatin cream. Status: Acute (7) Volume depletion: Problem comment: She is breast-feeding, having diarrhea, and he likely has pancreatitis. Give high rate IV fluids for rehydration. Encourage clear liquids. Status: Acute Plan VTE prophylaxis: Encourage frequent ambulation.
[2022-09-04] MEDS: SODIUM CHLORIDE 0.9 % (FLUSH) 10 ML SYRINGE 5 ML IVF (22:24)
[2022-09-04 23:00] VITALS: BP 110/57; PULSE 108; RESP 18; TEMP 36.6; O2SAT 97
[2022-09-05] MEDS: LACTATED RINGERS 1000 ML 1,000 ML 200 ML IV ×3 (02:32→12:29)
[2022-09-05 03:00] VITALS: BP 110/57; PULSE 103; RESP 18; TEMP 36.6; O2SAT 97
--- NOTE | 2022-09-05 06:34 | PC.NURSE ---
ADMISSION NOTE: Pt direct admit, pleasant and cooperative, A&O. Denies pain, SOB, CP, and N/V. Up independent in room. Pt's baby and pt's friend stayed the night. VSS on RA. Tolerating a clear liquid diet.
[2022-09-05 07:00] VITALS: BP 115/68; PULSE 96; RESP 18; TEMP 36.8; O2SAT 93
[2022-09-05 07:00] LABS: Basophils Percent Auto 0.2 % (0.0-3.0); Eosinophils Percent Auto 1.9 % (0.0-7.0); Hematocrit 27.5 % (33.0-51.0); Hemoglobin* 8.8 gm/dL (12.0-16.0); Immature Granulocytes Pct Auto 0.4 %; Lymphocytes Percent Auto 15.5 % (20-44); Mean Corpuscular HGB Conc 32 gm/dL (32-36); Mean Corpuscular Hemoglobin 27 pg (26-34); Mean Corpuscular Volume 83 fL (80-100); Platelet Count* 464 K/uL (140-440); RDW Coefficient of Variation % 18.4 % (11.5-15.5); Red Blood Count 3.32 m/uL (4.00-5.20); White Blood Count* 12.91 K/uL (4.50-11.00)
[2022-09-05 07:03] LABS: Slide Review Reflex No
[2022-09-05 07:07] LABS: Albumin* 3.2 g/dL (3.3-5.0); Chloride* 107 mmol/L (96-114)
[2022-09-05 07:08] LABS: Potassium* 3.9 mmol/L (3.6-5.1); Sodium* 136 mmol/L (135-149)
[2022-09-05 07:10] LABS: Alkaline Phosphatase* 95 U/L (40-150); Aspartate Amino Transferase* 40 U/L (12-35); Bilirubin Total* 0.7 mg/dL (0.1-1.5); Blood Urea Nitrogen* 11 mg/dL (5-24); Carbon Dioxide* 22 mmol/L (20-32); Creatinine* 0.6 mg/dL (0.5-1.5); Estimated Glomerular Filt Rate 128 ml/min; Lipase* 236 U/L (23-300); Total Protein* 6.3 g/dL (6.0-8.3)
[2022-09-05 07:11] LABS: Alanine Aminotransferase* 70 U/L (4-35); Calcium* 8.4 mg/dL (8.4-10.6); Glucose* 102 mg/dL (60-115)
[2022-09-05 07:16] LABS: C.Difficile Negative (Negative); CDIFFEPI 027 Presumptive Negative (Negative)
[2022-09-05] MEDS: MULTIVITAMIN/MINERALS 1 TABLET 1 TAB PO (09:43)
[2022-09-05] MEDS: NYSTATIN CREAM 30 GM 1 APPLIC TOPICAL ×2 (09:43→15:00)
[2022-09-05 11:00] VITALS: BP 115/69; PULSE 103; RESP 18; TEMP 37.6; O2SAT 98
--- NOTE | 2022-09-05 13:20 | PM.GSCN ---
History of Present Illness Consult details Date Seen: 09/05/22 Consult date: 09/05/22 Narrative: Patient is a 22-year-old female who presented to her primary care provider for postop fevers. Ten days earlier she was hospitalized at [facility] for acute cholecystitis and choledocholithiasis. During that hospital stay she underwent a laparoscopic cholecystectomy with intraoperative cholangiogram and subsequent ERCP with biliary stent. Since Saturday she has been having intermittent high fevers, although the fever curve has been improving. Her highest fever was on Saturday and 102.6. Her last fever was yesterday and 100.5. She has also been having some mild abdominal pain since surgery, but this has also been improving. The pain is just above her belly button. She is currently only needing Tylenol and ibuprofen for pain control. She is otherwise tolerating a regular diet and having regular bowel movements. No other concerns. On workup by her primary care provider she had evidence on CT scan of a large omental infarction. On reviewing her surgical operative report from 08/26/2022 it does appear that there were omental adhesions to the gallbladder that were sharply and bluntly taken down during the operation. Her past medical history is also significant for recent vaginal delivery 8 weeks ago, she is currently . Review of Systems Status of ROS: Reports: 6 or more systems reviewed and unremarkable except as noted in History and below [facility] Medical History (Updated 09/04/22 @ 22:31 by Jessica Barnes MD) Allergic rhinitis ?J30.9 - Allergic rhinitis, unspecified (ICD-10) Asthma ?J45.909 - Unspecified asthma, uncomplicated (ICD-10) 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 without complication (ICD-10) Vaginal delivery (~05/2022) ?O80 - Encounter for full-term uncomplicated delivery (ICD-10) Surgical History (Updated 09/04/22 @ 22:12 by Jessica Barnes MD) H/O dilation and curettage ?Z98.890 - Other specified postprocedural states (ICD-10) History of ERCP (~08/27/22) ?Z98.890 - Other specified postprocedural states (ICD-10) Hx laparoscopic cholecystectomy (~08/26/22) ?Z90.49 - Acquired absence of other specified parts of digestive tract (ICD-10) [place] teeth extracted ?K08.409 - Partial loss of teeth, unspecified cause, unspecified class (ICD-10) Family History Mother Miscarriage Diabetes Father Healthy adult Social History (Updated 09/04/22 @ 22:18 by Jessica Barnes MD) Narrative: . Non-smoker. Does not drink alcohol or use recreational drugs. 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 Are you following a diet prescribed by a doctor: No Are you following a special diet: No Previous occupational history: Beautician Known occupational exposures/hazards details: concerns about chemical exposure from products at work Highest level of school completed/degree received: Associate degree: occupational, technical, vocational program Physical activity type: walking and bicycling Physical activity type details: stationary bike How many days of moderate to strenuous exercise, like a brisk walk, did you do in the last 7 days: 1 Smoking Status: Never smoker Do you use any of these nicotine containing products: None Second hand tobacco smoke exposure: No How often do you have a drink containing alcohol: never How often do you have six or more drinks on one occasion: Never AUDIT-C Alcohol total score: 0 Non-prescribed substance use: denies use Caffeine: No Little interest or pleasure in doing things: not at all Feeling down, depressed, or hopeless: not at all service: No Meds Home Medications and Allergies Allergies Allergy/AdvReac Type Severity Reaction Status Date / Time Sulfa (Sulfonamide Allergy Verified 08/22/22 14:09 Antibiotics) Exam Narrative: Exam Narrative: General: Alert and oriented, no acute distress. Nontoxic in appearance. Respiratory: Equal breath rise bilaterally, maintained on room air CV: Regular rhythm rate, well perfused Abdomen: Mild tenderness to deep palpation epigastric, no rebound or guarding. Abdomen is soft and nondistended. Const: Vital Signs, click to edit/add: Vital Signs - 24 hr 09/04/22 20:02 09/04/22 23:00 09/05/22 07:00 Temperature 99 F 97.8 F Pulse Rate [Left R adial] 106 H 108 H 96 Respiratory Rate 18 18 18 Blood Pressure [Ri ght Arm] 117/66 110/57 L Pulse Oximetry 97 97 Oxygen Delivery Me thod Room Air Room Air 09/05/22 03:00 09/05/22 07:00 09/05/22 11:00 Temperature 97.8 F 98.2 F 99.6 F Pulse Rate [Left R adial] 103 H 96 103 H Respiratory Rate 18 18 18 Blood Pressure [Ri ght Arm] 110/57 L 115/68 115/69 Pulse Oximetry 97 93 98 Oxygen Delivery Me thod Room Air Room Air Room Air Results Labs Labs: Abnormal lab results 09/05/22 Range/Units 06:15 WBC 12.91 H (4.50-11.00) K/uL RBC 3.32 L (4.00-5.20) m/uL Hgb 8.8 L (12.0-16.0) gm/dL Hct 27.5 L (33.0-51.0) % RDW Coeff of Ghassan 18.4 H (11.5-15.5) % Plt Count 464 H (140-440) K/uL Neut % (Auto) 75.0 H (42.0-72.0) % Lymph % (Auto) 15.5 L (20-44) % Neut # (Auto) 9.70 H (1.7-7.0) K/uL AST 40 H (12-35) U/L ALT 70 H (4-35) U/L Albumin 3.2 L (3.3-5.0) g/dL Diabetes panel 09/05/22 Range/Units 06:15 Sodium 136 (135-149) mmol/L Potassium 3.9 (3.6-5.1) mmol/L Chloride 107 (96-114) mmol/L Carbon Dioxide 22 (20-32) mmol/L BUN 11 (5-24) mg/dL Creatinine 0.6 (0.5-1.5) mg/dL Glucose 102 (60-115) mg/dL Calcium 8.4 (8.4-10.6) mg/dL AST 40 H (12-35) U/L ALT 70 H (4-35) U/L Alkaline Phosphatase 95 (40-150) U/L Total Protein 6.3 (6.0-8.3) g/dL Albumin 3.2 L (3.3-5.0) g/dL Calcium panel 09/05/22 Range/Units 06:15 Calcium 8.4 (8.4-10.6) mg/dL Albumin 3.2 L (3.3-5.0) g/dL Pituitary panel 09/05/22 Range/Units 06:15 Sodium 136 (135-149) mmol/L Potassium 3.9 (3.6-5.1) mmol/L Chloride 107 (96-114) mmol/L Carbon Dioxide 22 (20-32) mmol/L BUN 11 (5-24) mg/dL Creatinine 0.6 (0.5-1.5) mg/dL Glucose 102 (60-115) mg/dL Calcium 8.4 (8.4-10.6) mg/dL Adrenal panel 09/05/22 Range/Units 06:15 Sodium 136 (135-149) mmol/L Potassium 3.9 (3.6-5.1) mmol/L Chloride 107 (96-114) mmol/L Carbon Dioxide 22 (20-32) mmol/L BUN 11 (5-24) mg/dL Creatinine 0.6 (0.5-1.5) mg/dL Glucose 102 (60-115) mg/dL Calcium 8.4 (8.4-10.6) mg/dL Total Bilirubin 0.7 (0.1-1.5) mg/dL AST 40 H (12-35) U/L ALT 70 H (4-35) U/L Alkaline Phosphatase 95 (40-150) U/L Total Protein 6.3 (6.0-8.3) g/dL Albumin 3.2 L (3.3-5.0) g/dL All other labs normal. Imaging Abdomen CT scan report/results: report reviewed and image reviewed Assessment and Plan Assessment and plan (1) Fat necrosis of omentum: Problem comment: I spoke with Dr. Almanza who recommended conservative management. Status: Acute Plan Patient is a 22-year-old female status post laparoscopic cholecystectomy, ERCP and biliary stent on 08/26/2022. On workup there is evidence of a large area of fat necrosis. This is most likely omentum, with low concern for mesenteric infarction or ischemia at this time. The colon and bowel all appear well perfused with no evidence of pneumatosis. At this time she is nontoxic, has a benign exam and is reportingimprovement of her symptoms. This area is at risk for developing an infection, but there is no current fluid collection or evidence of abscess. Recommend continued conservative management. She was also advised to follow-up with her surgeon in the next 1-2 weeks. If the patient's abdominal pain worsens, her fevers do not improve and/or she has increasing inflammatory markers would recommend interval repeat imaging and reevaluation.
--- NOTE | 2022-09-05 14:23 | PC.NURSE ---
pt advanced to Regular diet, fluids at 200cc/hr. oracle distribution consultant in room to assist with 6 week old and feedings. pt pleasant and cooperative. denies pain. indep in room. nystatin to redness under right breast. Plan for pt to d/c today
--- NOTE | 2022-09-05 14:32 | PM.DS1 ---
DS: Providers Provider Date Seen: 09/05/22 Date of admission: 09/04/22 19:57 Primary care physician: Tammy Ryder MD Admitting Clinician: Jessica Barnes MD Attending Physician on discharge: Elio Coleman MD Date of Discharge: 09/05/22 DS: Diagnosis Discharge Diagnosis (1) Fat necrosis of omentum: Status: Acute Problem details: Radiographically has fat necrosis of the omentum as a cause of her recent pain and fever following her laparoscopic cholecystectomy on August 26 and her ERCP on August 27. No CT evidence for pancreatitis. Normal lipase. Patient doing well. Conservative management as an outpatient. (2) Postoperative fever: Status: Acute Problem details: Suspected to be due to fat necrosis of the omentum. Doing quite well now. Pain is controlled with Tylenol and ibuprofen. Eating a normal diet. Outpatient follow-up with General surgery and return to the emergency department if getting worse. (3) Acute diarrhea: Status: Acute Problem details: Possibly secondary to recent laparoscopic cholecystectomy. C diff test is negative. DS: Summary Hospital Course Hospital Course: 22-year-old female who is approximately 8 weeks and 10 days after laparoscopic cholecystectomy and 9 days after ERCP presents with abdominal pain and fever for the last 7 days. Initially suspected to have pancreatitis room secondary to ERCP. CT scan however showed large area of 0 was thought to be necrosis of the omentum in her epigastrium. No significant abnormalities of the gallbladder fossa or pancreas. Normal lipase and bilirubin and only mildly elevated AST an ALT. Patient was managed conservatively and was feeling much better today. Her fever seems to be resolved. She is tolerating regular diet. She did have some diarrhea and had a C diff test which was negative. She had consultation with our general surgeon, Dr. Almanza. She recommend ongoing management with observation and outpatient follow-up with her surgeon next week. Return to the emergency department for worsening symptoms, especially increasing abdominal pain or fever Status at Discharge Functional status at discharge: independent ambulation Overall status at discharge: patient is progressing back to baseline Time Spent with Patient Time attestation: Total time spent providing and/or coordinating discharge services: Time spent: Greater than 30 minutes Exam Narrative: Exam Narrative: She is alert and appears in no distress. Mood and affect are bright. Respirations are clear to auscultation. Cardiovascular: S1, S2, regular rate and rhythm. No murmur gallop or rub. Abdomen: Bowel sounds active. Laparoscopic incisions in her abdomen are well healed without erythema or drainage. Abdomen is soft. She has mild mid epigastric tenderness. No peritonitis. Extremities without edema. She moves all 4 extremities well. Good perfusion. Const: Vital Signs, click to edit/add: Vital Signs - 24 hr 09/04/22 20:02 09/04/22 23:00 09/05/22 07:00 Temperature 99 F 97.8 F Pulse Rate [Left R adial] 106 H 108 H 96 Respiratory Rate 18 18 18 Blood Pressure [Ri ght Arm] 117/66 110/57 L Pulse Oximetry 97 97 Oxygen Delivery Me thod Room Air Room Air 09/05/22 03:00 09/05/22 07:00 09/05/22 11:00 Temperature 97.8 F 98.2 F 99.6 F Pulse Rate [Left R adial] 103 H 96 103 H Respiratory Rate 18 18 18 Blood Pressure [Ri ght Arm] 110/57 L 115/68 115/69 Pulse Oximetry 97 93 98 Oxygen Delivery Me thod Room Air Room Air Room Air Documenting provider has reviewed patient's vital signs: yes DS: Data Data Completed and Pending Completed studies during hospitalization: Procedures Delivery of Products of Conception, External Approach (07/12/22) Repair Perineum Muscle, Open Approach (07/12/22) Labs on day of discharge: Labs from last 24 hours 09/05/22 09/05/22 09/04/22 06:30 06:15 20:18 WBC 12.91 H RBC 3.32 L Hgb 8.8 L Hct 27.5 L MCV 83 MCH 27 MCHC 32 RDW Coeff of Ghassan 18.4 H Plt Count 464 H Neut % (Auto) 75.0 H Lymph % (Auto) 15.5 L [place] % (Auto) 7.0 Eos % (Auto) 1.9 Baso % (Auto) 0.2 Neut # (Auto) 9.70 H Lymph # (Auto) 2.00 [place] # (Auto) 0.90 Eos # (Auto) 0.20 Baso # (Auto) 0.00 Sodium 136 Potassium 3.9 Chloride 107 Carbon Dioxide 22 BUN 11 Creatinine 0.6 Estimated GFR 128 Glucose 102 Calcium 8.4 Total Bilirubin 0.7 AST 40 H ALT 70 H Alkaline Phosphatase 95 Total Protein 6.3 Albumin 3.2 L Lipase 236 Stl C.difficile Tox PCR Negative St C. diff Tox Epid 027 Presumptive Negative Ova & Parasites Pending Imaging CT scan - abdomen: Radiologist's impression: [facility] [address] [place] [address] Diagnostic Imaging Report Attending Dr: Tammy Ryder M.D. Ordering Physician: Tammy Ryder M.D. Date of Service: 09/04/22 Procedure(s): CT abdomen pelvis w con Accession Number(s): [id number] cc: Tammy Ryder M.D.~ For Patients:? As a result of the Cures Act, medical imaging exams and procedure reports are released immediately into your electronic medical record.? You may view this report before your referring provider.? If you have questions, please contact your health care provider. INDICATION: Postop fever. TECHNIQUE: CT abdomen and pelvis acquired with 98 cc Isovue 370 IV contrast. COMPARISON: 08/24/2022. FINDINGS: Lower chest: Unremarkable. Liver: Unremarkable. Normal in size and attenuation. No suspicious masses. Gallbladder and bile ducts: Gallbladder is absent. There is pneumobilia. No biliary dilatation. Common bile duct stent is in satisfactory position. Pancreas: Unremarkable. No mass or inflammation. Spleen: Unremarkable. Normal in size. No masses. Adrenal glands: Unremarkable. No nodules. Kidneys: Unremarkable. No suspicious masses, stones, or hydronephrosis. GI tract: Wall thickening present in the transverse colon. Remainder of the GI tract is within normal limits in caliber and appearance. A new metallic linear object is at the origin of the appendix, this could represent a surgical clip. Vasculature: Abdominal aorta is normal in caliber. Mesenteric arteries are patent. Lymph nodes: No lymphadenopathy. Peritoneum/Abdominal Wall: Large area of edema or inflammation is in the central mesenteric fat as demonstrated on series 2, image 71, this is new. Moderate free fluid in the pelvis. No free air. Pelvis: Unremarkable. Bones: Unremarkable for age. IMPRESSION: 1. There are postoperative changes from recent cholecystectomy. No postoperative complications evident in the gallbladder fossa. 2. A new large area of inflammation/edema in the central mesentery. This could represent a large area of fat necrosis. No sign of abscess. 3. Wall edema in the transverse colon adjacent to the mesenteric inflammatory process is present. This could represent secondary colitis which is favored over a primary infection. 4. New linear metallic object at the origin of the appendix could represent a piece of the biliary stent or other surgical clip. Please note that all CT scans at this facility use dose modulation, iterative reconstruction, and/or weight-based dosing when appropriate to reduce radiation dose to as low as reasonably achievable. Dictated by Ruben Squires MD @ 09/04/2022 4:51:30 PM (Electronically Signed) Discharge Plan Discharge Disposition: Home, Self-Care Date of Admission: 09/04/22 19:57 Attending Provider on Discharge: Dejan Coleman Consulting Providers: Gabi Almanza Primary Care Provider: Tammy Ryder Condition: Improved Anticipated Discharge Date/Time: 09/05/22 13:10 Discharge Medications: Continued acetaminophen 500 mg Tablet 1,000 mg PO Q6H PRN30 Days Qty: 30 0RF ibuprofen 600 mg Tablet 600 mg PO Q6H PRN30 Days Qty: 30 0RF Discharge Orders: Discharge Order (Routine); Ordered 09/05/22 Ordered By: Dejan Coleman Additional Instructions: See your surgeon, Dr. Murray, at [facility] next week. If you are getting worse, more pain, more fever or otherwise feeling ill, return to the emergency room for repeat evaluation. Activity Level: No Restrictions Discharge Diet: Regular Follow Up Appointments: Tammy Ryder MD [Primary Care Provider] - Forms: [employer] Info Instructions
[2022-09-05 14:51] VITALS: BMI 38.7
[2022-09-05 14:52] VITALS: RESP 18; TEMP 37.6
--- NOTE | 2022-09-05 17:38 | PC.NURSE ---
Discharge: patient discharged at 1558, IV removed intact. Belongings list and discharge intructions signed. patient verbalized understanding.
[2022-09-08 15:27] LABS: Ova and Parasite, Fecal Negative (Negative)
== END 2022-09-05 15:58 | disposition home or self-care (01) ==
PROVIDERS: Admitting Provider Family Medicine; PCP Family Medicine; Visit Provider Family Medicine
DX: K65.4 Sclerosing mesenteritis (principal); R50.82 Postprocedural fever; R19.7 Diarrhea, unspecified; R74.01 Elevation of levels of liver transaminase levels; R63.30 Feeding difficulties, unspecified; E86.0 Dehydration; B37.2 Candidiasis of skin and nail; Z39.1 Encounter for care and examination of lactating mother; Z39.2 Encounter for routine postpartum follow-up; Z98.890 Other specified postprocedural states; Z90.49 Acquired absence of other specified parts of digestive tract; R10.9 Unspecified abdominal pain
CPT/HCPCS: 36415; 74177; 80053; 83690; 85025; 87045; 87046; 87177; 87209; 87427; 87493; 96360; 96361; A9153; A9270; G0378; G0379; J7120; Q9967

== ENCOUNTER 2024-03-31 01:38 | Inpatient (IN) | payer BC, SELFPAY ==
[2024-03-31] VITALS (155 sets, daily range): BP systolic 80–147; BP diastolic 39–76; PULSE 97–149; RESP 12–22; TEMP 36.3–37.1; O2SAT 73–100; BMI 44.1
--- OUTSIDE RECORDS SUMMARY | 2024-03-31 01:18 | XMS_ITS | Clinical Summary ---
Author Organization [facility] Address [address] [place], [place] [address] [address] Care Team Providers Care Wood Lathe Operator Name Role Phone No Ref-Primary, Physician Primary Care Provider Active Problems Problem Noted Date Diagnosed Date Asthma 11/04/2023 S/P laparoscopic cholecystectomy 09/10/2022 Elevated LFTs 08/24/2022 Estimated Date of Delivery Comme nts Yes 03/29/2024 Based on last me nstrual period of 06/23/2023 Social History Tobacco Use Types Packs/Day Years Used Date Smoking Tobacco: Never Assessed Tobacco Cessation:Counseling Given: Not Answered Adolescent Education Answer Date Record ed Getting School Help Needed Not on file 02/09 Estimated Date of Delivery Comme nts Yes 03/29/2024 Based on last me nstrual period of 06/23/2023 Sex and Gender Information Value Date Recorded Sex Assigned at Not on file Legal Sex Female 1:05 PM CDT Gender Identity Not on file Sexual Orientation Not on file Plan of Treatment Health Maintenance Due Date Last Done Comments ADVANCE CARE PLANNING 1998 ANNUAL REVIEW OF HM ORDERS 1998 ASTHMA ACTION PLAN 1998 ASTHMA CONTROL TEST 1998 YEARLY PREVENTIVE VISIT 1998 Pneumococcal Vaccine: Pediatrics (0 to 5 Years) and At-Risk Patients (6 to 64 Years) (1 of 2 - PCV) 01/12/2004 HIV SCREENING 2013 HPV IMMUNIZATION (1 - 3-dose series) 2013 HEPATITIS C SCREENING 01/12/2016 DTAP/TDAP/TD IMMUNIZATION (7 - Td or Tdap) 01/12/2021 01/12/2011, 01/13/2004, 07/25/1999, Additional history exists PHQ-2 (once per calendar year) 2023 MATERNAL SCREENING DISCUSSION 09/01/2023 OBGCT (OB) 12/08/2023 COVID-19 Vaccine ( season) 2024 INFLUENZA VACCINE (#1) 2024 GROUP B STREP SCREENING 03/01/2024 PAP 10/14/2026 10/15/2023 HEPATITIS B IMMUNIZATION Completed 999, 1998, 1998 CHLAMYDIA SCREENING Discontinued 08/05/2023 MENINGITIS IMMUNIZATION Aged Out No l onger eligible based on patient's age to complete this topic RSV MONOCLONAL ANTIBODY Aged Out No l onger eligible based on patient's age to complete this topic RSV VACCINE (No Doses Required) Com[place] Care Teams Wood Lathe Operator Relationship Specialty Start Date End Date No Ref-Primary, Physician PCP - General 10/31/23
--- OUTSIDE RECORDS SUMMARY | 2024-03-31 01:18 | XMS_ITS | Clinical Summary ---
Author Organization [facility] Address [place], [place] [address] Care Team Providers Care Software Technical Lead Name Role Phone Tammy Ryder MD Primary Care Provider Allergies Active Allergy Reactions Criticality Noted Date Comments Sulfa (Sulfonamide Antibiotics) Hives High 01/18 Medications Medication Sig Dispensed Refills Start Date End Date Status Breast Pump PurchaseIndications: Supervision of high risk in third trimester Electric breast pump for home use. Gestational age at delivery: TBD weeks. Reason for need: separation from . Length of need: 99 months (lifetime use) 1 Each 06/27/2022 Active simethicone chewable (MYLANTA GAS RELIEF; GAS X) 80 mg chewable tabletIndications:Ch oledocholithiasis Chew 1 Tablet (80 mg) by mouth 4 times daily if needed for Flatulence. Max dose: 500 mg per 24 hrs 30 Tablet 08/29/2022 Active vitamin chewable (NATACHEW) 29 mg iron- 1 mg chew Chew 1 Tablet by mouth once daily. Active ondansetron (ZOFRAN ODT) 4 mg disintegrating tabletIndications:St omatitis,Vomiting and diarrhea,Supervision of high risk in second trimester Place 1 Tablet (4 mg) on the tongue every 8 hours if needed for Nausea/Vomiting. 30 Tablet 11/15/2023 Active Breast Pump PurchaseIndications: Breast feeding status of mother Electric breast pump for home use. Gestational age at delivery: TBD. Reason for need: separation from infant. Length of need: 99 months (lifetime use) 1 Each 01/07/2024 Active famotidine (PEPCID) 20 mg tabletIndications:He artburn during in third trimester Take 1 Tablet (20 mg) by mouth 2 times daily if needed for GI Upset or Heartburn. 90 Tablet 01/21/2024 Active azithromycin (ZITHROMAX) 250 mg tabletIndications:Pe rtussis exposure Take 500 mg (2 tabs) by mouth on day 1, then 250 mg (1 tab) daily for days 2-5. 6 Tablet 03/24/2024 Active Problems Problem Noted Date Diagnosed Date Pap smear for cervical cancer screening 10/29/19 Overview (10/29/2023): 09/2023 NIL/HPV negative. Plan: Pap/HPV due 09/2028. [facility], Supervision of high-risk 09/17/19 Overview (09/17/2023): SRO MPP - Completed [x] Patient name: Altagracia Rodriguez : 2000 Age: 23 y.o. Date of SRO: 09/17/2023 Estimated Date of Delivery: 03/29/24 Gest Age: 12w2d G/P: Current BMI: 41 Requested Discussion Topics: BMI REFERRING PROVIDER/CLINIC: Tammy Ryder MD Primary MD approves scheduling of recommended ultrasounds/testing: Yes Please schedule the following: [x] Abbasi [] Multiples: [] Consult [x] Ultrasound: - Level 2 (including echo) - 60 minutes [] Lab: [] Genetic Counseling [] Before [] After []15 [] 30 []45 []NT []CVS []Amnio [x] BMI > 40 [] Clay Roaster - Language [] [place] Insurance: Location [facility] Any [facility] [] In-person [] Virtual [] Either N/A Comments: RN: Shaista Larios RN Forming Yardage Control Operator: GC: /Provider: Date:09/17/2023 Urgency: at level II time []Can be sooner [] Can be split Altagracia Rodriguez : 2000 [facility] ULTRASOUND/TESTING PATIENT Support person name: ULTRASOUND TYPE: level II REASON FOR VISIT: BMI NEXT VISIT ALERTS: Final STEVAN by LMP LMP Date: Patient's last menstrual period was 06/23/2023 (exact date). STEVAN: 03/29/24 Early US: Date: 08/20/23 GA: 8w2d STEVAN: 03/29/24 PrePregnancy Weight: 279lb Height: 5'7 BMI: 43 PLANS & FUTURE APPOINTMENTS: ULTRASOUND/GROWTH PLAN: - Through: - Growth: Next TESTING PLAN: - Testing: Through DELIVERY PLAN: - Scheduled delivery: - Preferred delivery location: PRIMARY DIAGNOSIS: 23 y.o. Estimated Date of Delivery: 03/29/24 MATERNAL 2022 vaginal delivery PREVIOUS ULTRASOUNDS: (PCP) ECHO: REFERRING PROVIDER/CLINIC LOCATION/FAX #: Tammy Ryder MD General (Family Practice) [address] [facility] [address] Primary provider approves scheduling of recommended ultrasounds/testing: Yes SPECIALISTS/CONSULTS: Include: Specialty MD Clinic Name Phone# [place] and ADDED TO PATIENT CARE TEAM GENETICS: NIPS: AFP: First screen (NT/seq/integ): if positive add .FIRSTABNORMAL Quad screen (Tetra/Triple screen): if positive add .QUADABNORMAL Amniocentesis/CVS: IVF with PGT: Carrier screening: Declines/Not Done CARE COORDINATION: PERTINENT LABS: Labs reviewed? Normal? Blood type: A Rh Positive Antibody screen: Negative Non-[facility] labs need to be entered in [employer]? PERTINENT MEDS: PROCEDURES: IF FGR <10% or EFW <2000 grams: Add FGRPCOM PLAN OF CARE: Original and updated POC 08/05/2023 Overview (03/12/2024): Primary OB patient of Dr. Ryder Preferred name: Altagracia Language/cultural preferences: Surinamese OB HISTORY / PERTINENT MEDICAL HISTORY: Dating by LMP Patient's last menstrual period was 06/23/2023 (exact date). OB History Para Term AB Living 3 1 1 1 1 SAB IAB Ectopic Multiple Live Births 1 1 # Outcome Date GA Lbr Rodriguez/2nd Weight Sex Type Anes PTL Lv 3 Current 2 Term 07/12/22 40w5d F Vag ROMEL 1 SAB 09/02/17 Prior hx Preeclampsia NO HTN NO GDM NO Dystocia NO C/S NO Issues this : BMI>40 MPP consult Social History : FOB/Spouse: [place] Children: daughter Lynette 07/12/22 Work/school: homemaker Substance use: No COURSE: echo: Level 2 US at 20w1d GA: Normal, Anterior placenta, Last estimated weight: 1269g Additional Ultrasounds: 3rd tri growth Sonographic gestational age 28 weeks 6 days and sonographic due date of 03/25/2024. Good correlation with dates. Estimated weight at 53rd percentile. Abdominal circumference 63rd percentile. Vaccination: Flu None Tdap (27-36w) 2010 BMI: Body mass index is 40.88 kg/m??. Pre-eclampsia risk on aspirin? NO LABS: GBS: 36.3 wks GROUP B STREPTOCOCCUS Date Value Ref Range Status 03/04/2024 DETECTED (A) NOT DETECTED Final Comment: Note per CDC guidelines optimal recovery is achieved by swabbing both the lower vagina and rectum (through the anal sphincter). 28wk labs: GLUCOSE,GESTATIONAL Date Value Ref Range Status 01/07/2024 117 70 - 139 mg/dL Final HEMOGLOBIN Date Value Ref Range Status 01/07/2024 10.4 (L) 12.0 - 16.0 g/dL Final TREPONEMA PALLIDUM Date Value Ref Range Status 01/07/2024 Non-Reactive Non-Reactive Final OB labs: ABORH Date Value Ref Range Status 08/05/2023 A Rh Positive Final ANTIBODY SCREEN Date Value Ref Range Status 08/05/2023 Negative Negative Final TREPONEMA PALLIDUM Date Value Ref Range Status 08/05/2023 Non-Reactive Non-Reactive Final RUBELLA IGG ANTIBODY Date Value Ref Range Status 08/05/2023 1.34 >=1.00 Index Final INTERPRETATION Date Value Ref Range Status 08/05/2023 Positive Final Comment: Presence of detectable IgG antibodies. A positive result generally indicates exposure to the virus or previous vaccination, but is not an indication of active infection or stage of disease. HBSAG Date Value Ref Range Status 08/05/2023 Nonreactive Nonreactive Final HEPATITIS C ANTIBODY Date Value Ref Range Status 08/05/2023 Non-Reactive Non-Reactive Final Comment: Please note, per www.CDC.gov: If a patient is known to be at high risk of HCV infection, or is symptomatic, and the physician's suspicion of HCV infection is high, HCV RNA testing is often employed and is of diagnostic value, even after an initial negative anti-HCV test result. HIV-1/HIV-2 SCREEN Date Value Ref Range Status 08/05/2023 Non-Reactive Non-Reactive Final Comment: HIV-1 p24 and HIV-1/HIV-2 Ab Not Detected. HEMOGLOBIN Date Value Ref Range Status 08/05/2023 12.4 12.0 - 16.0 g/dL Final PLATELET COUNT Date Value Ref Range Status 08/05/2023 246 140 - 440 thou/cu mm Final CHLAMYDIA PROBE Date Value Ref Range Status 08/05/2023 Negative Final N GONORRHOEAE PROBE Date Value Ref Range Status 08/05/2023 Negative Final PLAN: plan: Support people at delivery: Circumcision: Feeding plan Contraception: S/P laparoscopic cholecystectomy 09/10/2022 Acute liver injury - mixed pattern 08/24/2022 Supervision of high risk in [facility] 03/23/2022 Overview (06/22/2022): Estimated Date of Delivery: 07/07/22 Patient's last menstrual period was 09/30/2021 (exact date). GBS positive: Component Latest Ref Rng & Units 06/19/2022 Vaginal/Rectal OB Strep B PCR Positive (A) Last Tdap- 01/12/2011 Last Flu vaccine- None Glucose (GTT) result- Component Latest Ref Rng & Units 04/10/2022 HEMOGLOBIN 12.0 - 16.0 g/dL 10.2 (L) MCV 80 - 100 fL 90 GLUCOSE,GESTATIONAL 65 - 140 mg/dL 111 TREPONEMA PALLIDUM Negative Negative Allergies Allergen Reactions ? ? Sulfa (Sulfonamide Antibiotics) Hives OB History Para Term AB Living 2 0 0 0 1 0 SAB IAB Ectopic Multiple Live Births 1 0 0 0 0 # Outcome Date GA Lbr Rodriguez/2nd Weight Sex Delivery Anes PTL Lv 2 Current 1 SAB 09/02/17 Create lab flowsheet for OB labs- Rubella immune Varicella immune RPR non reactive Hemoglobin 12.8 Platelets 290 Hepatitis C negative HBSAg negative HIV negative Gonorrhea Not detected Urine culture: No growth Blood type: A+ Antibody screen negative ?? Ultrasound: Dating ultrasound at 9 weeks with STEVAN of 07/05/21 MFM level 2 ultrasound: 1. Abbasi intrauterine at 22w4d gestational age here for evaluation of anatomy. 2. No anomalies commonly detected by ultrasound were identified in the detailed anatomic survey within the limits of ultrasound, however some views were suboptimal, as described above. 3. Growth parameters and estimated weight were consistent with established dates. 4. The amniotic fluid volume appeared normal. 5. On transabdominal imaging the cervix appears long and closed Past Medical History: . Date ? ? Allergic rhinitis, cause unspecified 12/08/2009 ? ? Exercise induced bronchospasm 03/31/2013 Past Surgical History: . Laterality Date ? ? DILATION AND CURETTAGE for miscarriage at age 17 No data on file. Problems (from 03/14/22 to present) No problems associated with this episode. Leila Julien RN .................... 03/23/2022 2:37 PM Mild persistent asthma without complication 03/20 Allergic rhinitis, cause unspecified 12/08/2009 Estimated Date of Delivery Comme nts Yes 03/29/2024 Based on last me nstrual period of 06/23/2023 (Exact Date) Resolved Problems Problem Noted Date Diagnosed Date Resolved Date Cholelithiasis with choledocholithiasis 08/24/2022 09/10/2022 Encounters Date Type Department Care Team Description 03/25/2024 2:50 PM PATTERN DUPLICATOR OB Encounter [facility] [address] [place] [address] Tammy Ryder MD Care (39w3d) 03/25/2024 Travel 03/24/2024 Telephone [facility] [address] [place] [address] Tammy Ryder MD Results 03/18/2024 1:10 PM CDT OB Encounter [facility] [address] [place] [address] Tammy Ryder MD Care (38w3d) 03/18/2024 Travel 03/13/2024 12:45 PM CDT [facility] [address] [facility] [place] [address] Tammy Ryder MD Care (37w 5d/) 03/13/2024 Travel 03/04/2024 1:10 PM CDT OB Encounter [facility] [address] [facility] [place] [address] Tammy Ryder MD Care (36w3d) 03/04/2024 Travel 03/03/2024 Telephone [facility] [address] [facility] [place] [address] Tammy Ryder MD 02/28/2024 2:00 PM CDT OB Encounter [facility] [address] [place] [address] Tammy Ryder MD Care (35w5d) 02/28/2024 Travel 02/20/2024 2:25 PM CDT OB Encounter [facility] [address] [place] [address] Tammy Ryder MD Care (34w4d/) 02/20/2024 1:00 PM CDT Ancillary Procedure [facility] [address] [place] [address] 02/20/2024 Travel 02/04/2024 2:50 PM CDT OB Encounter [facility] [address] [place] [address] Tammy Ryder MD Care (32w2d) 02/04/2024 Travel 01/21/2024 2:50 PM CDT OB Encounter [facility] [address] [place] [facility] [address] Tammy Ryder MD Care (30w2d) 01/21/2024 Travel 01/07/2024 2:50 PM CDT OB Encounter [facility] [address] [facility] [address] Tammy Ryder MD Care (28w2d) 01/07/2024 1:00 PM CDT Ancillary Procedure [facility] [address] [facility] [address] 01/07/2024 Travel from Last 3 Months Immunizations Name Administration Dates Next Due DTaP 01/13/2004,1998,1998 ,1998 DTaP-HIB (TriHIBIT) 07/25/1999 Dtap-5 Pertussis Antigens 01/13/2004 HIB-HepB (Comvax) [birth year] Hepatitis B (Peds) 2000 Inactivated Polio Vaccine 01/13/2004,1998, 1998,1998 MMR 01/13/2004,07/25/1999 Tdap 01/12/2011 Varicella Vaccine 01/12/2011,01/30/1999 Family History Medical History Relation Name Comments Good Health Brother Good Health Father Allergies Maternal Aunt Allergies Maternal Grandfather Allergies Maternal Uncle Diabetes type II Mother Good Health Mother Good Health Sister Relation Name Status Comments Brother Father Maternal Aunt Maternal Grandfather Maternal Uncle Mother Sister Social History Tobacco Use Types Packs/Day Years Used Date Smoking Tobacco: Never Smokeless Tobacco: Never Tobacco Cessation:Counseling Given: Yes Alcohol Use Standard Drinks/Week Comments Not Currently 0 (1 standard drink = 0.6 oz pur e alcohol) PHQ-2 Answer Date Recorded PHQ-2 TOTAL SCORE 1 09/04/2022 Social Connections Answer Date Recorded Do you often feel lonely or isolated from those around you? 0 08/05/2023 Financial Resource Strain Answer Date R ecorded Difficulty of Paying Living Expenses 3 08/05/2023 Difficulty of Paying Living Expenses Not on file 08/05/2023 Food Insecurity Answer Date Recorded Do you worry your food will run out before you are able to buy more? 1 08/05/2023 Transportation Needs Answer Date Record ed Does lack of transportation keep you from medica l appointments? 1 08/05/2023 Does lack of transportation keep you from work, meetings or getting things that you need? 1 08/05/2023 Housing Stability Answer Date Recorded What is your housing situation today? 1 08/05/2023 Estimated Date of Delivery Comme nts Yes 03/29/2024 Based on last me nstrual period of 06/23/2023 (Exact Date) Sex and Gender Information Value Date Recorded Sex Assigned at Not on file Gender Identity Not on file Sexual Orientation Not on file Obstetrics History Para Term AB IAB SAB Ectopic Multiple Livin g Live Births 3 1 1 1 1 1 1 Date Outcome GA Total Labor Labor/2nd/3rd Weight Sex Type Anes PTL Romel A1 A5 Name Clin 018 SAB 023 Term 40w 5d F Vag Livin g Paisle e Complications:None Delivery Location:Hospital Current Summary Episode Dates Number of Fetuses Estimated Date of Delivery 08/05/2023 - Present (03/31/2024) 03/29/2024 (set by Rossy Roque RN on 08/05/2023 based on Last Menstrual Period on 06/23/2023 (Exact Date)) Dating Summary Based On STEVAN GA Diff Last Menstrual Period on 06/23/2023 (Exact Date) 03/29/2024 Working Alternate STEVAN Entry 03/29/2024 Same Vitals Pregravid Weight Height TWG (As of 03/31/2024) Pregrav id BMI 1.72 m (5' 7.72) Notes Progress Notes - OB Encounte r - 03/25/2024 - GA:39w3d 03/25/2024 - 39w3d - Leeanna Ryder MD Patient is here for routine care at 39w3d Concerns: none No Contractions, bleeding, loss of fluid No Headache, vision changes, edema, right upper quadrant pain. Baby is moving well NST indication: obesity NST: Baseline 140, accels to 160, moderate variability Clymer: 1 contraction in 20 minutes Daughter tested positive for pertussis. MDH recommend prophylactic treatment for her and . Per MDH: Generally, if the mom hasn? t finished her course of abx at time of delivery AND doesn? t have any clinical signs of pertussis, the infant does not need PEP. If mom has developed symptoms by time of delivery and has not finished abx Provider could consider having mom mask around the infant until she has finished abx Provider could also consider giving the abx - but there are some pros and cons to this and should be up to the providers discretion. Again, the CDC thinks this situation is up to the physician and they? ll need to make a decision based on the timing of delivery, etc. Patient will start azithromycin today as well as . Discussed signs/symptoms of labor and when to call Reviewed preeclampsia symptoms Discussed IOL for postdates options. Will reassess at next week after 5 days of antibiotics for pertussis exposure. Tammy Ryder MD .................... 03/25/2024 5:24 PM CC: [facility] ERN DUPLICATOR Progress Notes - OB Encounte r - 03/18/2024 - GA:38w3d 03/18/2024 - 38w3d - Leeanna Ryder MD Patient is here for routine care at 38w3d Concerns: they were exposed to pertussis. Daughter has been coughing x 3-4 weeks. No Contractions, bleeding, loss of fluid No Headache, vision changes, edema, right upper quadrant pain. Baby is moving well NST: Indication-- Obesity NST: Baseline 145, moderate variability, accels to 180. Reactive NST Clymer: 2 contractions in 20 minutes, not felt by patient. Growth at 34 weeks: 61%ile, 2593 grams. Patient's daughter added onto schedule today for Pertussis rule out and treatment. Discussed signs/symptoms of labor and when to call Reviewed preeclampsia symptoms Tmamy Ryder MD .................... 03/18/2024 1:34 PM CC: [facility] Progress Notes - OB Encounte r - 03/13/2024 - GA:37w5d 03/13/2024 - 37w5d - Leeanna Ryder MD Patient is here for routine care at 37w5d Concerns: none No Contractions, bleeding, loss of fluid No Headache, vision changes, edema, right upper quadrant pain. Baby is moving well NST: Baseline 135, accels to 165, moderate variability, no decels Clymer: no contractions Reactive NST Labs today: Results for orders placed or performed in visit on 03/04/24 VAGINAL/RECTAL OB STREP PCR Collection Time: 03/04/24 2:51 PM Specimen: Vaginal/Rectal; Other Result Value Ref Range SOURCE VR GROUP B STREPTOCOCCUS DETECTED (A) NOT DETECTED Hemoglobin today Declines immunizations Discussed signs/symptoms of labor and when to call Reviewed preeclampsia symptoms Tammy Ryder MD .................... 03/13/2024 1:13 PM CC: [facility] Progress Notes - OB Encounte r - 03/04/2024 - GA:36w3d 03/04/2024 - 36w3d - Leeanna Ryder MD Patient is here for routine care at 36w3d Concerns: none No Contractions, bleeding, loss of fluid No Headache, vision changes, edema, right upper quadrant pain. Baby is moving well Labs today- gbs NST: Baseline 140, moderate variability, accels to 175 Clymer: no contractions Reactive NST (Done for obesity) Growth most recently 61%ile. Discussed patient with Dr. Meza, he states she does NOT need anesthesia consultation. Discussed signs/symptoms of labor and when to call Reviewed preeclampsia symptoms Tammy Ryder MD .................... 03/04/2024 1:39 PM CC: [facility] Progress Notes - OB Encounte r - 02/28/2024 - GA:35w5d 02/28/2024 - 35w5d - Leeanna Ryder MD Patient is here for routine care at 35w5d Concerns: none No Contractions, bleeding, loss of fluid No Headache, vision changes, edema, right upper quadrant pain. Baby is moving well NST (indication obesity) Baseline 130, accels to 160, moderate variability Clymer: 1 contraction Reactive NST Labs today- none GBS next week Discussed signs/symptoms of labor and when to call Reviewed preeclampsia symptoms RTC weekly until delivery Tammy Ryder MD .................... 02/28/2024 2:26 PM CC: [facility] Progress Notes - OB Encounte r - 02/20/2024 - GA:34w4d 02/20/2024 - 34w4d - Leeanna Ryder MD Patient is here for routine care at 34w4d Concerns: none BPP 8/8. Growth is 61%ile. No Contractions, bleeding, loss of fluid No Headache, vision changes, edema, right upper quadrant pain. Baby is moving well Labs today- none Discussed signs/symptoms of labor and when to call Reviewed preeclampsia symptoms RTC weekly, will do NST at each visit. Tammy Ryder MD .................... 02/20/2024 2:50 PM CC: [facility] Progress Notes - OB Encounte r - 02/04/2024 - GA:32w2d 02/04/2024 - 32w2d - Leeanna Ryder MD Patient is here for routine care at 32w2d Concerns: none No Contractions, bleeding, loss of fluid No Headache, vision changes, edema, right upper quadrant pain. Baby is moving well Has growth scan/BPP at 34 weeks. Then will start weekly NST with me. Discussed signs/symptoms of labor and when to call Reviewed preeclampsia symptoms RTC in 2 weeks, then weekly thereafter. Tammy Ryder MD .................... 02/04/2024 2:40 PM CC: [facility] Progress Notes - OB Encounte r - 01/21/2024 - GA:30w2d 01/21/2024 - - Leeanna Ryder MD Patient is here for routine care at 30w2d Concerns: has been having more acid reflux. 28 week growth us: IMPRESSION: Sonographic gestational age 28 weeks 6 days and sonographic due date of 03/25/2024. Good correlation with dates. Estimated weight at 53rd percentile. Abdominal circumference 63rd percentile. No Contractions, bleeding, loss of fluid No Headache, vision changes, right upper quadrant pain. Had some swelling this weekend. Baby is moving well Discussed signs/symptoms of labor and when to call Reviewed preeclampsia symptoms Declines immunizations. RTC in 2 weeks. Tammy Ryder MD .................... 01/21/2024 3:17 PM CC: [facility] Progress Notes - OB Encounte r - 01/07/2024 - GA:28w2d 01/07/2024 - - Leeanna Ryder MD Patient is here for routine care at 28w2d Concerns: none No Contractions, bleeding, loss of fluid No Headache, vision changes, edema, right upper quadrant pain. Baby is moving well Labs today- GTT test today Results for orders placed or performed in visit on 01/07/24 GLUCOSE,GESTATIONAL Result Value Ref Range GLUCOSE,GESTATIONAL 117 70 - 139 mg/dL HEMOGLOBIN Result Value Ref Range HEMOGLOBIN 10.4 (L) 12.0 - 16.0 g/dL MCV 89 80 - 100 fL Growth US today IMPRESSION: Sonographic gestational age 28 weeks 6 days and sonographic due date of 03/25/2024. Good correlation with dates. Estimated weight at 53rd percentile. Abdominal circumference 63rd percentile. Will need growth US at 34 Will need testing starting at 34 weeks. TDaP=-- declines. Discussed signs/symptoms of labor and when to call Reviewed preeclampsia symptoms Tammy Ryder MD .................... 01/07/2024 3:10 PM CC: [facility] Progress Notes - OB Encounte r - 12/10/2023 - GA:24w2d 12/10/2023 - 2d - Leeanna Ryder MD Patient is here for routine care at 24w2d Concerns: none No Contractions, bleeding, loss of fluid No Headache, vision changes, edema, right upper quadrant pain. Baby is moving well- feels a little less but has anterior placenta. Will need growth US at 28 and 34 Will need testing starting at 34 weeks. Labs today- none Discussed signs/symptoms of labor and when to call Reviewed preeclampsia symptoms RTC in 4 weeks for GTT, labs, growth scan. Sooner with concerns. Tammy Ryder MD .................... 12/10/2023 3:08 PM CC: [facility]. Progress Notes - OB Encounte r - 11/12/2023 - GA:20w2d 11/12/2023 - - Leeanna Ryder MD Patient is here for routine care at 20w2d Concerns: had level 2 ultrasound yesterday-- has CPCs she wants to talk about 1. Abbasi at 20w 1d gestational age. 2. Bilateral CPCs are seen. 3. No other anomalies commonly detected by ultrasound were identified in the detailed anatomic survey within the limits of ultrasound. 4. Growth parameters and estimated weight were consistent with gestational age predicted by assigned STEVAN. 5. The amniotic fluid volume appeared normal. 6. On transabdominal imaging the cervix appeared long and closed. For a BMI > 40 we recommend that you assess growth at 28 and 34 weeks and begin weekly testing at 34 weeks. No cramping, bleeding, loss of fluid No Headache, vision changes, edema, right upper quadrant pain. Baby is moving well Discussed signs/symptoms of labor and when to call Reviewed preeclampsia symptoms RTC in 4 weeks. Discussed NIPT-- will consider. Will call if she would like to proceed. Tammy Ryder MD .................... 11/12/2023 3:38 PM CC: [facility] Progress Notes - OB Encounte r - 10/15/2023 - GA:16w2d 10/15/2023 - 16w2d - Leeanna Ryder MD Patient is here for routine care at 16w2d Concerns: Feels better Doesn't feel . No cramping, bleeding, loss of fluid Not feeling flutters quite yet. Needs level 2 ultrasound, wants to do it at [facility] as she has done care there before. Follow up in 4 weeks, sooner with concerns. Tammy Ryder MD .................... 10/15/2023 2:02 PM CC: [facility] Progress Notes - OB Encounte r - 09/17/2023 - GA:12w2d 09/17/2023 - 12w2d - Leeanna Ryder MD Clinic Note: First OB Visit 09/17/2023 Altagracia Rodriguez is a 23 y.o. with Estimated Date of Delivery: 03/29/24, here today for a first visit. Patient has vaginal delivery with her daughter Lynette 07/12/2022. was complicated by oligohydramnios and BMI >35. Shortly after delivery had choledocholithiasis and required an ERCP and laparoscopic cholecystectomy Vomiting more with this . Starting to feel better. TECHNIQUE: Real-time crowe-scale imaging of the pelvis was performed. FINDINGS: Sonographic imaging demonstrates a single living intrauterine gestation. The embryo demonstrates a regular cardiac rate measuring 165 beats per minute. The embryo`s crown-rump length measurement of 1.8 cm corresponds to a gestational age of 8 weeks 2 days with a sonographic due date of 03/29/2024. There is a normal-appearing yolk sac. There are no gross abnormalities noted within the embryo at this early state of development. The gestational sac has a normal appearance. There is no evidence of a perigestational hemorrhage. The amount of fluid within the sac appears appropriate for gestational age. The cervix is closed. The myometrium appears normal. The ovaries are of normal size. There are no suspicious fluid collections noted in the cul-de-sac. IMPRESSION: Normal first trimester OB ultrasound exam. Gestational age calculated at 8 weeks 2 days with a sonographic due date of 03/29/2024. 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 Past Medical History: . Date Allergic rhinitis, cause unspecified 12/08/2009 Anemia 2022 Asthma 2015 sports induced Exercise induced bronchospasm 03/31/2013 Past Surgical History: . Laterality Date DILATION AND CURETTAGE for miscarriage at age 17 LAPAROSCOPIC CHOLECYSTECTOMY WITH CHOLANGIOGRAM 08/26/2022 [facility]. Dr. Murray Family History Problem Relation Age of Onset Good Health Mother Diabetes type II Mother Good Health Father Good Health Sister Good Health Brother Allergies Maternal Aunt Allergies Maternal Uncle Allergies Maternal Grandfather Social History Socioeconomic History Marital status: Occupational History Occupation: student Tobacco Use Smoking status: Never Smokeless tobacco: Never Vaping Use Vaping status: Never Used Substance and Sexual Activity Alcohol use: Not Currently Drug use: No Sexual activity: Yes Partners: Male Other Topics Concern Seat Belt Yes Current Outpatient Medications Medication Sig Dispense Refill Breast Pump Purchase Electric breast pump for home use. Gestational age at delivery: 40 weeks. Reason for need: separation from infant. Length of need: 99 months (lifetime use) 1 Each 0 Breast Pump Purchase Electric breast pump for home use. Gestational age at delivery: TBD weeks. Reason for need: separation from . Length of need: 99 months (lifetime use) 1 Each 0 vitamin chewable (NATACHEW) 29 mg iron- 1 mg chew Chew 1 Tablet by mouth once daily. simethicone chewable (MYLANTA GAS RELIEF; GAS X) 80 mg chewable tablet Chew 1 Tablet (80 mg) by mouth 4 times daily if needed for Flatulence. Max dose: 500 mg per 24 hrs 30 Tablet 0 RISK FACTORS Seat Belt Use: 100% Alcohol/day: 0 Meds/Drugs/ETOH Since LMP: No Control Method: none High Risk Behavior: none INFECTION HISTORY Current Drug Use: none HIV Risk Evaluation: low risk Hepatitis B Risk Evaluation: low risk Hepatitis B Immunized: yes Personal History of Genital Herpes: no Partner History of Genital Herpes: no Rash/Viral Illness Since LMP: No History of STD: no history of STD's Other: History of Chicken Pox? Chicken pox immunization? Family history of - defects: no Chromosomal problems: no Stillbirths: Paternal great aunt had some stillborns. Maternal aunt had baby with trisomy 21 at age 48 Desire Test for CYSTIC FIBROSIS or SMA? no Desire genetic testing otherwise? no REVIEW OF SYSTEMS: General: no fevers, chills, appetite changes, weight changes. + fatigue Eyes: no blurry vision, double vision. Ears/Nose/Throat: no hearing changes, pain. no nasal congestion, rhinorrhea, frequent epistaxis. no throat pain, difficulty swallowing. . Cardiovascular: no chest pain, chest pressure, syncope, orthostatic symptoms Respiratory: no cough, shortness of breath, dyspnea on exertion, orthopnea Gastrointestinal: + nausea, vomiting. No constipation, diarrhea, melena or bright red rectal bleeding Genitourinary - female: no hematuria, dysuria, incontinence, nocturia. no vaginal bleeding. Some cramping Musculoskeletal: no back, arm or leg pain Skin: no rashes or lesions Neurologic: no numbness, weakness, tingling, headaches, falls Psychiatric: no depression, anxiety Endocrine: no polyuria, polydipsia, heat or cold intolerance Heme/Lymphatic: no easy bruising, easy bleeding Allergic/Immunologic: no frequent infections PHYSICAL EXAM BP 123/84 (Cuff Site: Left Arm, Position: Sitting, Cuff Size: Adult Large) Pulse 100 Wt 121.7 kg (268 lb 3.2 oz) LMP 06/23/2023 (Exact Date) SpO2 97% BMI 41.12 kg/m?? General Appearance: Alert, well-developed, well-nourished, with appropriate grooming and dress. No acute distress HEENT Exam: PERRL. MMM. TMs pearly bilaterally. Neck / Thyroid Exam: Supple, no masses, nodes or enlargement. Chest/Respiratory Exam: Normal chest wall and respirations. Clear to auscultation. Breast Exam: deferred Cardiovascular Exam: Regular rate and rhythm. Normal S1, S2. No murmur, click, gallop, or rubs. Gastrointestinal Exam: Soft, non-tender, no masses or organomegaly. Pelvic Exam: Declined, Pap smear will be done next week Lymphatic Exam: Non-palpable nodes in neck, clavicular regions. Musculoskeletal Exam: Back is straight and non-tender, full ROM of upper and lower extremities. Skin: no rash or abnormalities Neurologic Exam: Normal gait and speech, no tremor. DTR's 2+ and symmetric Psychiatric Exam: Alert and oriented, appropriate affect. Bedside US shows +FHT, good movement ASSESSMENT/PLAN: ICD-10-CM 1. Encounter for supervision of other normal in second trimester Z34.82 AMB CONSULT TO MATERNAL- MEDICINE 2. Screening for cervical cancer - will do Pap smear next visit Z12.4 1. First OB: Satisfactory exam. Demonstrates appropriate and health seeking behaviors toward her . Verbalizes good understanding of care schedule and the importance of coming to each visit as scheduled. Has supportive family relationship. Reviewed health maintenance issues including diet, exercise, caffeine intake, handling of cat litter, toxic substances, daily vitamins, child classes, choosing a senior test analyst, and regular exams. - Reviewed ordered lab results - Reviewed New [facility]nings and handouts 2. Had history of oligohydramnios that resolved with first . 3. Will do Level 2 for BMI >40. 4. RTC 4 weeks. She was encouraged to call the office with any questions or concerns. Tammy Ryder MD .................... 09/17/2023 2:16 PM [facility] [phone] CC: [facility] Progress Notes - OB Encounte r - 08/05/2023 - GA:6w1d 08/05/2023 - 6w1d - Rossy Roque RN SUBJECTIVE: Altagracia Rodriguez is a 23 y.o. female, , who presents for confirmation and ob education. Patient presents to the clinic alone. Had positive test at home. This was Unplanned, Desired. Patient was not on contraception. 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 MENSTRUAL HISTORY: Patient's last menstrual period was 06/23/2023 (exact date).: Cycle Regularity: regular, every 28-30 days Past Medical History: . Date Allergic rhinitis, cause unspecified 12/08/2009 Anemia 2022 Asthma 2015 sports induced Exercise induced bronchospasm 03/31/2013 OB History Para Term AB Living 3 1 1 1 1 SAB IAB Ectopic Multiple Live Births 1 1 # Outcome Date GA Lbr Rodriguez/2nd Weight Sex Delivery Anes PTL Lv 3 Current 2 Term 07/12/22 40w5d F Vag ROMEL 1 SAB 04/16/18 5P'S SUBSTANCE ABUSE SCREEN FOR ALCOHOL, DRUGS AND TOBACCO: Did any of your parents have a problem with using alcohol or drugs? No Do any of your friends (peers) have problems with drug or alcohol use? No Does your partner have a problem with drug or alcohol use? No Before you knew you were , how often did you drink beer, wine, wine coolers or liquor or use any kind of drug? Not at all In the past month, how often did you drink beer, wine, wine coolers or liquor or use any kind of drug? Not at all How much did you smoke, vape or use tobacco or nicotine in any form before you knew you were ? Don't Smoke, Vape or use Tobacco Genetic Screening Genetic Screening/Teratology Counseling- Includes patient, baby's father, or anyone in either family with: Patient's age 35 years or older as of estimated date of delivery: No Thalassemia (Khmer, French, Mediterranean, or background): MCV less than 80: No Neural tube defect (Meningomyelocele, Spina bifida, or Anencephaly): No Congenital heart defect: No Down syndrome: Yes (Comment: mom's cousin) Casey-Sachs (Ashkenazi Roman Catholic, Cajun, Yakut [place]): No Heather disease (Ashkenazi Roman Catholic): No Familial dysautonomia (Ashkenazi Roman Catholic): No Sickle cell disease or trait (): No Hemophilia or other blood disorders: No Muscular dystrophy: No Cystic fibrosis: No Granville's chorea: No Intellectual disability and/or autism: No Other inherited genetic or chromosomal disorder: No Maternal metabolic disorder (eg. Type 1 diabetes, PKU): No Patient or baby's father had child with defects not listed above: No Recurrent loss, or a stillbirth: No Medications (including supplements, vitamins, herbs, or OTC drugs)/illicit/recreational drugs/alcohol since last menstrual period: Yes If yes, agent(s) and strength/dosage: liquid w/o iron CURRENT MEDICATIONS: Current Outpatient Medications Medication Sig Breast Pump Purchase Electric breast pump for home use. Gestational age at delivery: 40 weeks. Reason for need: separation from infant. Length of need: 99 months (lifetime use) Breast Pump Purchase Electric breast pump for home use. Gestational age at delivery: TBD weeks. Reason for need: separation from infant. Length of need: 99 months (lifetime use) vitamin chewable (NATACHEW) 29 mg iron- 1 mg chew Chew 1 Tablet by mouth once daily. simethicone chewable (MYLANTA GAS RELIEF; GAS X) 80 mg chewable tablet Chew 1 Tablet (80 mg) by mouth 4 times daily if needed for Flatulence. Max dose: 500 mg per 24 hrs No current facility-administered medications for this visit. Medications have been reviewed by me and are current to the best of my knowledge and ability. ALLERGIES: Sulfa (sulfonamide antibiotics) OBJECTIVE: Ht 1.72 m (5' 7.72) Wt 126.6 kg (279 lb) LMP 06/23/2023 (Exact Date) No BMI 42.78 kg/m?? ,URINE (no units) Date Value 08/26/2022 Negative ASSESSMENT/PLAN: No diagnosis found. EDUCATION/PATIENT INSTRUCTIONS - Advised patient to start/continue vitamin. - Discussed risk of using alcohol, tobacco, other drugs in . - Discussed healthy lifestyle in . - Provided copy of Beginnings book and book inserts, discussed [id number] medications, and follow up. - Encouraged patient to call clinic at [phone] with any vaginal bleeding, fluid leaking from vagina, severe abdominal pain, nausea with severe vomiting, fever higher than 100.4F, painful urination, headache not relieved by Tylenol, or other concerns - labs completed with today's visit. yes - Patient informed to schedule 1st trimester dating ultrasound between 7-10 weeks. - Initial OB appointment with FP/OB scheduled. PHQ-9, and COVID-19 vaccine discussion to be completed at this visit. Future Appointments Date Time Provider Department Center 09/16/2023 3:05 PM Rossy Cota MD [facility] Rossy Roque RN .................... 08/05/2023 11:20 AM Last Filed Vital Signs Vital Sign Reading Time Taken Comments Blood Pressure 114/72 03/25/2024 3:03 PM PATTERN DUPLICATOR Pulse 112 03/25/2024 3:03 PM PATTERN DUPLICATOR Temperature 37.2 ??C (98.9 ??F) 11/15/2023 1 0:13 AM CDT Respiratory Rate 16 10/08/2022 11:3 3 AM CDT Oxygen Saturation 97% 03/25/2024 3:03 PM PATTERN DUPLICATOR Inhaled Oxygen Concentration - - Weight 127.3 kg (280 lb 9.6 oz) 03/25/2024 3:03 PM PATTERN DUPLICATOR Height 172 cm (5' 7.72) 08/05/2023 11: 03 AM CDT Body Mass Index 43.02 08/05/2023 11:03 AM CDT Plan of Treatment Upcoming Encounters Date Type Department Care Team (Late st Contact Info) Description 04/01/2024 2:50 PM PATTERN DUPLICATOR OB Encounter [facility] [address] [place] [address] Tammy Ryder MD [address] [place] [address] 04/08/2024 2:50 PM PATTERN DUPLICATOR OB Encounter [facility] [address] [place] [address] Tammy Ryder MD [address] [place] [address] Health Maintenance Due Date Last Done Comments HPV series for age 9-26 (1 - 3-dose series) 2013 Tetanus booster 01/12/2021 01/12/2011 Depression screening for age 12+ 09/05/2023 09/04/2022, 09/04/2022, 06/05/2022, Additional history exists COVID-19 vaccine series ( season) 2024 Influenza for age 9-49 01/19/2024 BMI (ht and wt on same day) for age 18+ 08/04/2024 08/05/2023, 10/05/2022, 03/14/2022, Additional history exists Pap test for age 21-65 10/14/2028 , 10/15/2023, 03/31/2019 Tdap Completed 01/12/2011 HIV for age 15-65 Completed 08/05/2023 Hepatitis C screening for age 18-79 Completed 08/05/2023 Pneumococcal series for age 6-64 Aged Out No longer eligible based on patient's age to complete this topic RSV vaccine for adults or (No Doses Required) Completed Medical Devices Implanted Type Area [employer] Dispatcher Device Identifier Shelf Expiration Date Model / Serial / Lot Stent Biliary [id number] Wallflex Covered Metal - [id number] Implanted:Qty : 1 on 08/27/2022 by Biju Acevedo MD at [facility] Common Bile Duct [facility] 06/12/2023 [id number] / / [id number] Procedures Procedure Name Priority Date/Time Associated Diagnosis Comments HEMOGLOBIN Routine 03/13/2024 1:41 PM CDT Supervision of high risk in third trimester VAGINAL/RECTAL OB STREP PCR Routine 03/04/2024 2:51 PM CDT Supervision of high risk in third trimester Obesity affecting in first trimester, unspecified obesity type US OB BIOPHYSICAL PROFILE AND FOLLOW UP SINGLE Routine 02/20/2024 1:18 PM CDT Supervision of high risk in first trimester Choroid plexus cyst Obesity affecting in first trimester, unspecified obesity type TREPONEMA PALLIDUM Routine 01/07/2024 3: 48 PM CDT Supervision of high risk in first trimester Obesity affecting in first trimester, unspecified obesity type HEMOGLOBIN Routine 01/07/2024 3:48 PM CDT Supervision of high risk in first trimester Obesity affecting in first trimester, unspecified obesity type GLUCOSE TOLERANCE, GESTATIONAL SCREEN 1H Routine 01/07/2024 3:48 PM CDT Supervision of high risk in first trimester Obesity affecting in first trimester, unspecified obesity type US OB FOLLOW UP ANY TRI SINGLE TA Routine 01/07/2024 1:40 PM CDT Supervision of high risk in first trimester Choroid plexus cyst Obesity affecting in first trimester, unspecified obesity type HPV HIGH RISK Routine 10/15/2023 2:18 PM CDT Screening for cervical cancer ANTI HIV 1/2 Routine 08/05/2023 11:53 AM CDT Encounter for supervision of other normal in first trimester ANTI HCV Routine 08/05/2023 11:53 AM CDT Encounter for supervision of other normal in first trimester from Last 3 Months or Most Recently Relevant to Health Maintenance Results * (ABNORMAL) HEMOGLOBIN (03/13/2024 1:41 PM CDT) Only the most recent of2 resultswithin the time period is included. HEMOGLOBIN 9.9(L) 11.7 - 15.5 g/dL [facility] Blood BLOOD SPECIMEN / Unknown 03/13/2024 1:41 PM CDT 03/13/2024 1:42 PM CDT Tammy Ryder MD HEMATOLOGY [employer] [address] [place] [address], [facility] [address] [place] [address] * (ABNORMAL) VAGINAL/RECTAL OB STREP PCR (03/04/2024 2:51 PM CDT) SOURCE VR [facility] GROUP B STREPTOCOCCUS DETECTED( A) NOT DETECTED [facility] Comment: ? Note per CDC guidelines optimal recovery is achieved by swabbing both the lower vagina and rectum (through the anal sphincter). Other (Vaginal/Rectal) 03/04/2024 2:51 PM CDT 03/04/2024 2:53 PM CDT Tammy Ryder MD MICROBIOLOGY [facility] [address] [address] [place] [address], [facility] [address] [place] [address] * US OB BIOPHYSICAL PROFILE AND FOLLOW UP SINGLE (02/20/2024 1:18 PM CDT) Anatomical Region Laterality Modality Ultrasound 02/21/2024 2:04 PM CDT Addenda Addendum by Claude Chester MD on 03/18/2024 3:55 PM CDT For Patients: As a result of the Cures Act, medical imaging exams and procedure reports are released immediately into your electronic medical record. ??You may view this report before your referring provider. ?? If you have questions, please contact your health care provider. ??ADDENDUM ? ADDENDUM ? ADDENDUM Addendum: ??Sonographic gestational age is 35 weeks 0 days and sonographic due date is 03/26/2024. ??Good correlation with dates. ??Normal interval growth. ??Estimated weight is 61st percentile. ??Abdominal circumference is 82nd percentile. ?? Claude Chester M.D. Diagnostic Radiologist [email or web address] DSM/rcd Impressions 02/21/2024 2:04 PM CDT Normal biophysical profile score of 8 out of 8. Dictated by Claude Chester MD @ 02/21/2024 2:04:04 PM (Electronically Signed) Narrative 02/21/2024 2:04 PM CDT For Patients: ??As a result of the Cures Act, medical imaging exams and procedure reports are released immediately into your electronic medical record. ??You may view this report before your referring provider. ?? If you have questions, please contact your health care provider. INDICATION: Supervision of high-risk COMPARISON: 01/07/2024 TECHNIQUE: Real time crowe scale imaging of the fetus was performed. Without non-stress testing. FINDINGS: Sonographic imaging demonstrates a single living intrauterine gestation. ?? Fetus demonstrates a regular cardiac rate of 140 beats per minute. ??Fetus has a vertex position. The amniotic fluid volume appears normal and there is a single deepest pocket measurement of 6.2 cm. ??The fetus was active and demonstrated normal breathing movements. There was normal flexion and extension of the trunk and extremities. ?? Tammy Ryder MD US * TREPONEMA PALLIDUM (01/07/2024 3:48 PM CDT) TREPONEMA PALLIDUM Non-Reacti ve Non-Reacti ve 01/07/2024 11:33 PM CDT [facility] Blood BLOOD SPECIMEN / Unknown Venipuncture / Unknown 01/07/2024 3:48 PM CDT 01/07/2024 3:48 PM CDT Tammy Ryder MD SEND OUTS [facility] [address] [place] [address], * GLUCOSE,GESTATIONAL (01/07/2024 3:48 PM CDT) GLUCOSE,GESTAT IONAL 117 70 - 139 mg/dL 01/07/2024 3:55 PM CDT [facility] Blood BLOOD SPECIMEN / Unknown Venipuncture / Unknown 01/07/2024 3:48 PM CDT 01/07/2024 3:48 PM CDT Tammy Ryder MD CHEMISTRY Performing Organization Address City/[facility]/ZIP Co de Phone Number [facility] [address] [place] [address], [place] [phone] * US OB FOLLOW UP ANY TRI SINGLE TA (01/07/2024 1:40 PM CDT) Anatomical Region Laterality Modality , 2or 3 TRIMESTER Ultrasound 01/07/2024 3:09 PM CDT Impressions 01/07/2024 3:09 PM CDT Sonographic gestational age 28 weeks 6 days and sonographic due date of 03/25/2024. Good correlation with dates. Estimated weight at 53rd percentile. Abdominal circumference 63rd percentile. Dictated by Claude Chester MD @ 01/07/2024 3:09:59 PM (Electronically Signed) Narrative 01/07/2024 3:09 PM CDT For Patients: ??As a result of the Cures Act, medical imaging exams and procedure reports are released immediately into your electronic medical record. ??You may view this report before your referring provider. ??If you have questions, please contact your health care provider. INDICATION: Third trimester scan, evaluate growth. COMPARISON: 08/20/2023 TECHNIQUE: Real time crowe scale imaging of the fetus was performed. FINDINGS: Sonographic imaging demonstrates a single living intrauterine gestation. ??Fetus demonstrates a regular cardiac rate of 142 beats per minute. ??Fetus has a vertex position. The placenta lies anteriorly. ??Amniotic fluid volume appears normal and there is a single deepest vertical pocket: 6.5 cm. The estimated weight is 1269gm which lies at the 53rd %. The biometric indices all lie within normal range. ??The HC/AC ratio measures 1.08 range (1.05-1.22). ?? Procedure Note Claude Chester MD - 01/07/2024 For Patients: As a result of the Cures Act, medical imagingexams and procedure reports are released immediately into your electronicmedical record. You may view this report before your referring provider.If you have questions, please contact your health care provider. INDICATION: Third trimester scan, evaluate growth. COMPARISON: 08/20/2023 TECHNIQUE: Real time crowe scale imaging of the fetus was performed. FINDINGS: Sonographic imaging demonstrates a single living intrauterine gestation.Fetus demonstrates a regular cardiac rate of 142 beats per minute. Fetushas a vertex position. The placenta lies anteriorly. Amniotic fluidvolume appears normal and there is a single deepest vertical pocket: 6.5cm. The estimated weight is 1269gm which lies at the 53rd %. Thefetal biometric indices all lie within normal range. The HC/AC ratiomeasures 1.08 range (1.05-1.22). IMPRESSION: Sonographic gestational age 28 weeks 6 days and sonographic due date of03/25/2024. Good correlation with dates. Estimated weight at 53rd percentile. Abdominal circumference 63rdpercentile. Dictated by Claude Chester MD @ 01/07/2024 3:09:59 PM (Electronically Signed) Tammy Ryder MD US * HPV HIGH RISK (10/15/2023 2:18 PM CDT) TYPE 16 Negative Negative 10/18/2023 1:48 PM CDT [facility] TYPE 18 Negative Negative 10/18/2023 1:48 PM CDT [facility] OTHER HIGH RISK TYPES Negative Negative 10/18/2023 1:48 PM CDT [facility] Other (Cervical) Non-Blood / Unknown 10/15/2023 2:18 PM CDT 10/16/2023 10:42 AM CDT Narrative [facility] - 10/18/2023 1:48 PM CDT HPV types 16, 18, 31, 33, 35, 39, 45, 51, 52, 56, 58, 59, 66 and 68 DNA were undetectable or below the pre-set threshold. Methodology: David Adamaris 4800 HPV Test Tammy Ryder MD MICROBIOLOGY [facility] [address] [place] [address], * ANTI HCV (08/05/2023 11:53 AM CDT) HEPATITIS C ANTIBODY Non-Reacti ve Non-React dianelys 08/05/2023 10:15 PM CDT [facility] Comment:Please note, per www .CDC.gov: If a patient is known to be at high risk of HCV infection, or is symptomatic, and the physician's suspicion of HCV infection is high, HCV RNA testing is often employed and is of diagnostic value, even after an initial negative anti-HCV test result. Blood BLOOD SPECIMEN / Unknown Venipuncture / Unknown 08/05/2023 11:53 AM CDT 08/05/2023 11:57 AM CDT Tammy Ryder MD SEND OUTS [facility] [address] [place] [address], * ANTI HIV 1/2 (08/05/2023 11:53 AM CDT) HIV-1/HIV-2 SCREEN Non-Reacti ve Non-Reacti ve 08/05/2023 10:06 PM CDT [facility] [employer] [facility] Comment:HIV-1 p24 and HIV-1/ HIV-2 Ab Not Detected. Blood BLOOD SPECIMEN / Unknown Venipuncture / Unknown 08/05/2023 11:53 AM CDT 08/05/2023 11:57 AM CDT Tammy Ryder MD SEND OUTS [facility] [address] [place] [id number], from Last 3 Months or Most Recently Relevant to Health Maintenance Advance Directives * Full Code (Latest Code Status on File) Date Activated Date Inactivated Comments 08/24/2022 10:10 PM 08/29/2022 1:04 PM Question Answer Comments Code Status Discussion: Reviewed Preferences Care Teams Software Technical Lead Relationship Specialty Start Date End Date Tammy Ryder MD [address] [facility] [id number] PCP - General Family Practice 06/01/22
--- OUTSIDE RECORDS SUMMARY | 2024-03-31 01:18 | XMS_ITS | Referral Summary ---
Author Organization [facility] Address [address] [place] [id number] Care Team Providers Care Behavioral Pediatrician Name Role Phone No Ref-Primary, Physician Primary [...] Orientation Not on file Plan of Treatment Not on file Insurance [facility] Care Teams Behavioral Pediatrician Relationship Specialty Start Date End Date No Ref-Primary, Physician PCP - General 10/31/23
[2024-03-31] MEDS: AMPICILLIN 2 GM in 0.9 % SODIUM CHLORIDE Mini-bag 100 ML IVPB (01:48)
[2024-03-31] MEDS: LACTATED RINGERS 1000 ML 1,000 ML 1200 ML IV ×3 (01:48→04:09)
[2024-03-31 01:59] LABS: Basophils Percent Auto 0.2 % (0.0-3.0); Eosinophils Percent Auto 0.9 % (0.0-7.0); Hematocrit 31.6 % (33.0-51.0); Hemoglobin* 10.1 gm/dL (12.0-16.0); Immature Granulocytes Pct Auto 1.1 %; Lymphocytes Percent Auto 18.5 % (20-44); Mean Corpuscular HGB Conc 32 gm/dL (32-36); Mean Corpuscular Hemoglobin 26 pg (26-34); Mean Corpuscular Volume 80 fL (80-100); Monocytes Percent Auto 4.7 % (0.0-11.0); Neutrophils Percent Auto 74.6 % (42.0-72.0); Platelet Count* 286 K/uL (140-440); RDW Coefficient of Variation % 14.4 % (11.5-15.5); Red Blood Count 3.95 m/uL (4.00-5.20); Slide Review Reflex No; White Blood Count* 13.32 K/uL (4.50-11.00)
[2024-03-31] MEDS: LIDOCAINE 2% (PF) 5 ML VIAL EPIDURAL (02:14)
[2024-03-31] MEDS: ROPIVACAINE 0.2% 100 ml 100 ML 12 MG EPIDURAL ×2 (02:14→09:34)
[2024-03-31] MEDS: PHENYLEPHRINE 100 MCG/ML SYRINGE IVP ×9 (02:59→08:59)
--- NOTE | 2024-03-31 02:59 | P.ANBPRC_ITS ---
[facility] Medical History (Updated 09/12/22 @ 00:00 by David Thomas) Intertriginous candidiasis ?B37.2 - Candidiasis of skin and nail (ICD-10) Breast feeding status of mother ?Z39.1 - Encounter for care and examination of lactating mother (ICD-10) Acute diarrhea ?R19.7 - Diarrhea, unspecified (ICD-10) Allergic rhinitis ?J30.9 - Allergic rhinitis, unspecified (ICD-10) Vaginal delivery (~05/2022) ?O80 - Encounter for full-term uncomplicated delivery (ICD-10) 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 without complication (ICD-10) Asthma ?J45.909 - Unspecified asthma, uncomplicated (ICD-10) Surgical History (Updated 09/04/22 @ 22:12 by Jessica Barnes MD) H/O dilation and curettage ?Z98.890 - Other specified postprocedural states (ICD-10) Hx laparoscopic cholecystectomy (~08/26/22) ?Z90.49 - Acquired absence of other specified parts of digestive tract (ICD- 10) History of ERCP (~08/27/22) ?Z98.890 - Other specified postprocedural states (ICD-10) [place] teeth extracted ?K08.409 - Partial loss of teeth, unspecified cause, unspecified class (ICD- 10) Family History Mother Miscarriage Diabetes Father Healthy adult Social History (Updated 09/04/22 @ 22:18 by Jessica Barnes MD) Narrative: . Non-smoker. Does not drink alcohol or use recreational drugs. 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 Are you following a diet prescribed by a doctor: No Are you following a special diet: No Previous occupational history: Beautician Known occupational exposures/hazards details: concerns about chemical exposure from products at work Highest level of school completed/degree received: Associate degree: occupational, technical, vocational program Physical activity type: walking and bicycling Physical activity type details: stationary bike How many days of moderate to strenuous exercise, like a brisk walk, did you do in the last 7 days: 1 Smoking Status: Never smoker Do you use any of these nicotine containing products: None Second hand tobacco smoke exposure: No How often do you have a drink containing alcohol: never How often do you have six or more drinks on one occasion: Never AUDIT-C Alcohol total score: 0 Non-prescribed substance use: denies use Caffeine: No service: No Meds Home Medications and Allergies Allergies Allergy/AdvReac Type Severity Reaction Status Date / Time Sulfa (Sulfonamide Allergy Verified 08/22/22 14:09 Antibiotics) Results Labs Labs: Laboratory Results - last 24 hr 03/31/24 01:50 WBC 13.32 H RBC 3.95 L Hgb 10.1 L Hct 31.6 L MCV 80 MCH 26 MCHC 32 RDW Coeff of Ghassan 14.4 Plt Count 286 Neut % (Auto) 74.6 H Lymph % (Auto) 18.5 L [place] % (Auto) 4.7 Eos % (Auto) 0.9 Baso % (Auto) 0.2 Neut # (Auto) 9.90 H Lymph # (Auto) 2.50 [place] # (Auto) 0.60 Eos # (Auto) 0.10 Baso # (Auto) 0.00 Abs Immat Gran (auto) 0.10 Imm/Tot Granulo (auto) 1.1 Vital Signs Vital Signs: Last Vital Signs Pulse 123 H 03/31/24 02:56 BP 105/50 L 03/31/24 02:56 Pulse Ox 100 03/31/24 02:58 Anesthesia Procedures Epidural Insertion Patient Location: OB Start Time: 02:20 Stop Time: 03:10 Start Date: 03/31/24 Stop Date: 03/31/24 Reason for Block: primary anesthetic Patient Position: sitting Performed By: Bud Molina Preanesthetic Checklist: IV checked, risks and benefits discussed, surgical consent, monitors and equipment checked, pre-op evaluation, timeout performed and anesthesia consent Prep: chlorhexidine gluconate Monitoring: blood pressure monitoring, phototypesetting equipment monitor, continuous pulse oximetry and heart rate Approach: midline Vertebral Space: lumbar (1-5) Needle Type: Tuohy needle Injection Technique: continuous catheter (catheter) Needle gauge: 17 Needle Length (cm): 10 cm Needle Insertion Depth (cm): 8 Catheter Gauge: 19 Catheter Type: multi-orifice Catheter at skin depth (cm): 15 Test Dose Result: negative and lidocaine 1.5% with epinephrine 1 to 200,000
[2024-03-31] MEDS: ePHEDrine sulfate 5 MG/ML inj 10 MG IVP ×4 (03:05→06:07)
--- NOTE | 2024-03-31 04:30 | PM.OBHPLI ---
OB - H&P: HPI Labor/Induction History of Present Illness Time Seen by Provider: 04:31 Date Seen: 03/31/24 Chief Complaint: The patient is a 24 year old 3 para 1011 at 40+2 weeks gestation by LMP c/w early US, who presents with contractions. Chief complaint: Maternity : 3 Para: 1 Narrative: Altagracia Rodriguez is a 24 year old female at 40+2 weeks gestation by LMP c/w early US who presents in active labor. Endorses contractions throughout the day prior to admission. Became more intense with vomiting and shaking, and she was advised to be evaluated at L&D. Found to be 5 cm on admission. Requested epidural; now placed and resting comfortably. /1 at 0323. GBS positive and has received one dose of abx; second dose due 0545. complicated by maternal obesity with pre- BMI of 42 and anemia with Hgb 9.9 on 03/13. Patient's daughter was also diagnosed with pertussis at 39 weeks. Patient and have completed prophylactic antibiotics and are asymptomatic. History of Present Dating criteria: based on LMP care: good care Ultrasounds: normal 1st trimester US and normal mid trimester US (Level II for maternal BMI >40) Labs Blood type: A (+) positive Rubella: immune RPR/VDLR: nonreactive GBS status: positive HBsAG: negative Review of Systems Status of ROS: Reports: 10 or more systems reviewed and unremarkable except as noted in History and below Meds Home Medications and Allergies Allergies Allergy/AdvReac Type Severity Reaction Status Date / Time Sulfa (Sulfonamide Allergy Verified 08/22/22 14:09 Antibiotics) OB - H&P: Exam Physical Exam: Vital signs: Temp Pulse Resp BP Pulse Ox 98.4 F 104 H 12 109/57 L 100 03/31/24 03:59 03/31/24 04:19 03/31/24 03:59 03/31/24 04:19 03/31/24 04:28 Narrative: General appearance: Well-appearing adult female. Alert, oriented and appropriate. Lying back. HEENT: EOMI, no conjunctival injection or discharge. MMM. Neck: Supple. CV: RRR, no rubs, murmurs or extra heart sounds. Pulm: CTAB, no wheezes, rales or rhonchi. Abdomen: Gravid. MSK: Moving all extremities. Ext: Warm and well-perfused. Trace LE edema. Skin: No rashes appreciated over exposed skin. Neuro: Grossly normal strength and sensation. No focal deficits. Psych: Normal affect. Fetus (Single): Amniotic Membrane Status: intact Heart Rate Baseline: 150 Monitor Accelerations: Present Monitor Decelerations: None Penitentiary Variability: Moderate (6-25) OB - Results Labs Labs: Short CBC 03/31/24 Range/Units 01:50 WBC 13.32 H (4.50-11.00) K/uL Hgb 10.1 L (12.0-16.0) gm/dL Hct 31.6 L (33.0-51.0) % Plt Count 286 (140-440) K/uL OB - Problem Based A/P Additional Plan (1) Term : Problem details: 40+2 weeks. GBS positive. Complicated by maternal obesity with pre-preg BMI 42 and exposure to pertussis at 39 weeks, completed prophylactic abx. Status: Acute Plan: - Active labor; Expectant management - Epidural for pain management - GBS positive s/p 1 dose of abx; second dose due 0545 - FHT category 1 - Anticipate vaginal delivery
[2024-03-31] MEDS: AMPICILLIN 1 GM in 0.9 % SODIUM CHLORIDE Mini-bag 100 ML IVPB ×2 (05:36→09:48)
[2024-03-31] MEDS: LACTATED RINGERS 1000 ML 1,000 ML 70 ML IV (06:05)
--- NOTE | 2024-03-31 06:36 | PM.OBPNL ---
Subjective Time Seen by Provider: 06:36 Date Seen: 03/31/24 Narrative: Patient has received 4 hours of abx, is comfortable with epidural. Objective Exam: resting comfortably Vital Signs: Last Vital Signs Temp 98.4 F 03/31/24 03:59 Pulse 136 H 03/31/24 06:34 Resp 12 03/31/24 03:59 BP 95/51 L 03/31/24 06:34 Pulse Ox 99 03/31/24 04:33 Pelvic Exam Dilation (cm): 7 Effacement (%): 90 Station: 0 Contractions Monitor mode: External Contraction Frequency: 3-5 Contraction pattern: Regular Contraction intensity: Strong/Firm Assessment Assessment: active labor Station: 0 Amniotic Membrane Status: AROM (AROM now with moderate amount of clear fluid) Status: Category ll Heart Rate Baseline: 150 Correction Variability: Moderate (6-25) Monitor Accelerations: Present Monitor Decelerations: None Labor Progress: AROM now with clear fluid Plan Plan: - anticipate . - Epidural for analgesia - Dr. Wagn was managing overnight, I will take over care for delivery
--- NOTE | 2024-03-31 08:06 | P.OBPN_ITS ---
Subjective Time Seen by Provider: 08:06 Date Seen: 03/31/24 Narrative: Patient was feeling a lot more pain/pressure. Requested being checked. Objective Exam: Uncomfortable appearing Vital Signs: Last Vital Signs Temp 98.6 F 03/31/24 08:00 Pulse 123 H 03/31/24 08:00 Resp 12 03/31/24 03:59 BP 99/51 L 03/31/24 08:00 Pulse Ox 100 03/31/24 08:02 Pelvic Exam Dilation (cm): 8 Effacement (%): 10 Station: 0 Contractions Monitor mode: External Contraction pattern: Regular Contraction intensity: Strong/Firm Assessment Assessment: active labor Station: 0 Amniotic Membrane Status: AROM (clear fluid) Status: Category ll Heart Rate Baseline: 150 Sports Development Officer Variability: Moderate (6-25) Monitor Accelerations: Present Monitor Decelerations: None Plan Plan: Baby appears to be better applied against cervix. Bolus button pushed on epidural which helped some with pain. - patient has been tachycardic, will continue to monitor closely. Fluid rate increased to maintenance (125 ml/hr) - anticipate
[2024-03-31] MEDS: miSOPROStoL 800 MCG/4 TABLET PR (10:24)
[2024-03-31] MEDS: OXYTOCIN 30 unit/500 ML in NS 30 UNIT/500 ML BAG 300 UNIT IVPB (10:26)
[2024-03-31] MEDS: LIDOCAINE 1 % PF 30 ML INJECTION (10:27)
[2024-03-31] MEDS: TRANEXAMIC ACID 100 MG/ML INJ 1000 MG IV (10:34)
--- NOTE | 2024-03-31 10:58 | W.PM.OBVAGDE ---
OB Procedure Vag Delivery Mother Details Mother Details: The patient is a 24 year-old, 3, Para 1, admitted on 03/31/24 at 40w2d gestation for active labor. : 3 Para: 1 Weeks Gestation: 40.2 Admission Date: 03/31/24 Additional Details Amniotic Membrane Status: AROM Amniotic Membrane Rupture Date: 03/31/24 Amniotic Membrane Rupture Time: 06:27 Amniotic Membrane Fluid Description: Clear Analgesia/Anesthesia Type: Epidural Waterbirth: No Pitcoin: No Intrapartal Events: None Delivery augmentation: rupture of membranes Labor Onset: 01:50 Complete: 09:51 Pushin:58 Heart: heart tones during second stage were category 1, did have long accel to 190s, but resolved back to baseline of 150-155 Delivery Details Delivery Date: 03/31/24 Delivery Time: 10:18 Route of delivery: Gender: Female Infant Viability: Alive; Heart Rate Present Position at Delivery: OA Delivery Details: Patient presented in active labor at 5 cm. She received antibiotics for GBS colonization. After adequate abx, we performed ROM at 7-8 cm. She progressed when well. We reduced an anterior lip at 0951 and patient became complete. She pushed very effectively and delivered over intact perineum at 1018. Baby was delivered onto maternal abdomen. Cord was clamped after 3 minutes of delayed cord clamping per patient's preference, cut by father of baby in attendance. Nose and mouth were bulb suctioned.? weight pending. Patient had large gush prior to placenta. Pitocin had been started, we gave cytotec and TXA. 1 Minute Interval Total Score: 8 5 Minute Interval Total Score: 8 Additional Details Shoulder Dystocia: No Placenta Delivery Time: 10:27 Placental Delivery Description: Spontaneous Delivery repair: Vicryl Procedure Done: Global Blood Loss: 800 Laceration: Perineal - 2nd Degree Blood Loss Measurement Type: QBL Bakri Used: No Sponge/Need Count Correct: Yes Cord Vessel Description: 3 Vessels Event Summary Status: Mother and infant were stable after delivery. Disposition: no change
[2024-03-31 11:16] LABS: Hematocrit 31.3 % (33.0-51.0); Hemoglobin* 9.8 gm/dL (12.0-16.0); Mean Corpuscular HGB Conc 31 gm/dL (32-36); Mean Corpuscular Hemoglobin 26 pg (26-34); Mean Corpuscular Volume 82 fL (80-100); Platelet Count* 325 K/uL (140-440); Red Blood Count 3.81 m/uL (4.00-5.20); White Blood Count* 19.79 K/uL (4.50-11.00)
[2024-03-31 11:21] LABS: Slide Review Reflex No
--- NOTE | 2024-03-31 11:27 | P.OBPN_ITS ---
OB - PN:Subj Subjective Time Seen by Provider: 11: Date Seen: 03/31/24 Patient comments OB post-: no complaints status: feeding status: exclusively OB - PN: Obj Exam Physical Exam: Vital signs: Temp Pulse Resp BP Pulse Ox 97.8 F 133 H 12 107/59 L 99 03/31/24 11:00 03/31/24 11:17 03/31/24 03:59 03/31/24 11:17 03/31/24 11:24 Constitutional: Constitutional: no acute distress Routine HEENT Exam: Head: Present atraumatic Routine Respiratory Exam: Respiratory: Present CTA bilaterally Routine Cardiovascular Exam: Cardiovascular: Absent murmur Comments: tachycardic Routine Back/Spine/Pelvis Exam: Back/Spine: Present full ROM Routine Neurological Exam: Neurological: Present alert and oriented X3 Routine Psychiatric Exam: Psychiatric: Present normal affect OB - PN: Obj Data Labs Labs: Laboratory Results - last 24 hr 03/31/24 03/31/24 01:50 11:10 WBC 13.32 H 19.79 H RBC 3.95 L 3.81 L Hgb 10.1 L 9.8 L Hct 31.6 L 31.3 L MCV 80 82 MCH 26 26 MCHC 32 31 L RDW Coeff of Ghassan 14.4 Plt Count 286 325 Neut % (Auto) 74.6 H Lymph % (Auto) 18.5 L [place] % (Auto) 4.7 Eos % (Auto) 0.9 Baso % (Auto) 0.2 Neut # (Auto) 9.90 H Lymph # (Auto) 2.50 [place] # (Auto) 0.60 Eos # (Auto) 0.10 Baso # (Auto) 0.00 Abs Immat Gran (auto) 0.10 Imm/Tot Granulo (auto) 1.1 Blood Type A Positive Antibody Screen NEGATIVE OB - PN: A/P Delivery Assessment and Plan (1) Term : Problem details: 40+2 weeks. GBS positive. Complicated by maternal obesity with pre-preg BMI 42 and exposure to pertussis at 39 weeks, completed 1 dose of prophylactic abx. Status: Acute (2) hemorrhage: Problem details: QBL of 800, received pitocin, cytotec, TXA. Had brisk bleed from laceration site that resolved after repair. Status: Acute (3) Tachycardia: Problem details: Has been tachycardic since epidural and receiving several doses of meds for hypotension. Had hemorrhage. HR has improved from 140s to 120s since delivery. Low threshold for further work up with any symptoms. Status: Acute Plan - monitor bleeding and pulse closely - routine cares. Plan Plan: routine care
[2024-03-31] MEDS: IBUPROFEN 600 MG TABLET PO ×2 (13:34→20:23)
[2024-03-31 14:46] LABS: Albumin* 2.9 g/dL (3.3-5.0)
[2024-03-31 14:47] LABS: Chloride* 105 mmol/L (96-114); Potassium* 3.5 mmol/L (3.6-5.1); Sodium* 131 mmol/L (135-149)
[2024-03-31 14:49] LABS: Anion Gap 7 mEq/L (7-15); Aspartate Amino Transferase* 17 U/L (12-35); Bilirubin Total* 0.3 mg/dL (0.1-1.5); Carbon Dioxide* 19 mmol/L (20-32); Creatinine* 0.6 mg/dL (0.5-1.5); Est. Creatinine Clearance* 138.17; Estimated Glomerular Filt Rate 127 ml/min; Total Protein* 5.6 g/dL (6.0-8.3)
[2024-03-31 14:50] LABS: Alanine Aminotransferase* 12 U/L (4-35); Alkaline Phosphatase* 91 U/L (40-150); Blood Urea Nitrogen* 10 mg/dL (5-24); Calcium* 8.6 mg/dL (8.4-10.6); Glucose* 119 mg/dL (60-115)
--- NOTE | 2024-03-31 14:57 | CRLHL7_ITS ---
For Patients: As a result of the Century Cures Act, medical imaging exams and procedure reports are released immediately into your electronic medical record. You may view this report before your referring provider. If you have questions, please contact your health care provider. INDICATION: ELEVATED PULSE,SOB. TECHNIQUE: CT chest PE was acquired with 95 cc Isovue 370 IV contrast. COMPARISON: None. FINDINGS: Heart and vasculature: Contrast opacification of the pulmonary arterial tree is adequate. No sign of pulmonary embolism. Heart size is borderline enlarged. Thoracic aorta and pulmonary artery are normal in caliber. Lungs and pleura: No suspicious nodules or infiltrates. No pleural effusions, pleural thickening, or pneumothorax. Lymph nodes/mediastinum: No mediastinal, hilar, or axillary adenopathy. Chest wall: No masses. Upper abdomen: Mild pneumobilia is noted of unknown etiology. Bones: Unremarkable for age. IMPRESSION: No pulmonary embolism identified. No acute cardiopulmonary process identified. Incidentally noted pneumobilia of unknown etiology. Please note that all CT scans at this facility use dose modulation, iterative reconstruction, and/or weight-based dosing when appropriate to reduce radiation dose to as low as reasonably achievable. Dictated by Joi Frederick MD @ 03/31/2024 3:47:05 PM (Electronically Signed)
[2024-03-31] MEDS: ACETAMINOPHEN 500 MG TABLET 1000 MG PO ×2 (16:46→23:53)
--- NOTE | 2024-03-31 16:49 | PM.OBPNVD1 ---
OB - PN:Subj Subjective Time Seen by Provider: 16:49 Date Seen: 03/31/24 Patient comments OB post-: pain well controlled and other (feels short of breath with exertion) [place] status: Narrative: Called by nursing for persistent tachycardia and sob with exertion. OB - PN: Obj Exam Physical Exam: Vital signs: Temp Pulse Resp BP Pulse Ox O2 Del Method 97.5 F L 118 H 20 109/67 97 Room Air 03/31/24 13:36 03/31/24 15:10 03/31/24 15:10 03/31/24 13:36 03/31/24 15:10 03/31/24 15:10 Constitutional: Constitutional: no acute distress Routine HEENT Exam: Head: Present atraumatic Routine Neck Exam: Neck: Present full ROM Detailed Neck Exam: Thyroids: Thyroid: Present normal Routine Respiratory Exam: Respiratory: Present CTA bilaterally Routine Cardiovascular Exam: Cardiovascular: Present tachycardia; Absent murmur Routine Abdominal Exam: Fundus: Present firm Routine Extremities Exam: Extremities: Present pedal edema (trace pedal edema); Absent calf tenderness Routine Neurological Exam: Neurological: Present alert and oriented X3 Routine Psychiatric Exam: Psychiatric: Present normal affect OB - PN: Obj Data Labs Labs: Laboratory Results - last 24 hr 03/31/24 03/31/24 03/31/24 01:50 11:10 14:22 WBC 13.32 H 19.79 H RBC 3.95 L 3.81 L Hgb 10.1 L 9.8 L Hct 31.6 L 31.3 L MCV 80 82 MCH 26 26 MCHC 32 31 L RDW Coeff of Ghassan 14.4 Plt Count 286 325 Neut % (Auto) 74.6 H Lymph % (Auto) 18.5 L [place] % (Auto) 4.7 Eos % (Auto) 0.9 Baso % (Auto) 0.2 Neut # (Auto) 9.90 H Lymph # (Auto) 2.50 [place] # (Auto) 0.60 Eos # (Auto) 0.10 Baso # (Auto) 0.00 Abs Immat Gran (auto) 0.10 Imm/Tot Granulo (auto) 1.1 Sodium 131 L Potassium 3.5 L Chloride 105 Carbon Dioxide 19 L Anion Gap 7 BUN 10 Creatinine 0.6 Estimated Creat Clear 138.17 Estimated GFR 127 Glucose 119 H Calcium 8.6 Total Bilirubin 0.3 AST 17 ALT 12 Alkaline Phosphatase 91 Total Protein 5.6 L Albumin 2.9 L Blood Type A Positive Antibody Screen NEGATIVE Imaging CT scan - chest: Attestation: I have reviewed the pertinent imaging results. Radiologist's impression: No Pulmonary embolism. Mild cardiomegaly. OB - PN: A/P Delivery Assessment and Plan (1) Term : Problem details: 40+2 weeks. GBS positive. Complicated by maternal obesity with pre-preg BMI 42 and exposure to pertussis at 39 weeks, completed 1 dose of prophylactic abx. Received adequate GBS antibiotics prior to Status: Acute Assessment and Plan: -routine cares (2) hemorrhage: Problem details: QBL of 800, received pitocin, cytotec, TXA. Had brisk bleed from laceration site that resolved after repair. Continues to be tachycardic. Status: Acute Assessment and Plan: - repeat hemoglobin now, plan to transfuse if <8 given symptoms. (3) Tachycardia: Problem details: Has been tachycardic since epidural and receiving several doses of meds for hypotension. Had hemorrhage. HR has improved from 140s to 110s since delivery. Given SOB, PE study was completed and was reassuring. Borderline cardiomegaly. Patient has clear lung sounds and feels well at rest. EKG showed sinus tachycardia. Status: Acute Assessment and Plan: - proBNP now - consider diuresis +/- echo (4) LLOYD (dyspnea on exertion): Problem details: PE study reassuring. Dyspneic on activity. May be due to blood loss, thought will monitor closely Status: Acute Assessment and Plan: - 02 saturation reassuring. (5) Low urine output: Problem details: Patient presented in labor and had been vomiting. Received 3 liters IV fluids in labor. Minimal urine output (125 +130 mls). Bladder scan showed 180s residual. Patient is drinking well. Serum creatinine was drawn and was reassuring. Status: Acute Assessment and Plan: - strict ins/outs for next 24 hours -asked to bladder scan now post-void. Plan - Plan as above (Pro-BNP now, Hemoglobin now, post-void residual scan now). - signed out to Dr. Lobo, they will contact him with results for further management Plan day: 0 Plan: routine care Total time spent: 40
[2024-03-31 17:41] LABS: NT Pro B Type NatriureticPept* < 20 pg/mL
[2024-04-01] MEDS: IBUPROFEN 600 MG TABLET PO (05:06)
[2024-04-01 05:11] VITALS: BP 112/75; PULSE 93; RESP 18; TEMP 36.3; O2SAT 96
[2024-04-01 06:32] LABS: Basophils Percent Auto 0.3 % (0.0-3.0); Eosinophils Percent Auto 1.2 % (0.0-7.0); Hematocrit 23.3 % (33.0-51.0); Immature Granulocytes Pct Auto 0.4 %; Lymphocytes Percent Auto 27.5 % (20-44); Mean Corpuscular HGB Conc 32 gm/dL (32-36); Mean Corpuscular Hemoglobin 26 pg (26-34); Mean Corpuscular Volume 81 fL (80-100); Monocytes Percent Auto 5.4 % (0.0-11.0); Neutrophils Percent Auto 65.2 % (42.0-72.0); Platelet Count* 235 K/uL (140-440); RDW Coefficient of Variation % 14.5 % (11.5-15.5); Red Blood Count 2.88 m/uL (4.00-5.20); White Blood Count* 11.58 K/uL (4.50-11.00)
[2024-04-01 06:34] LABS: Hemoglobin* 7.4 gm/dL (12.0-16.0)
[2024-04-01 06:35] LABS: Slide Review Reflex No
[2024-04-01 06:40] LABS: Albumin* 2.7 g/dL (3.3-5.0); Chloride* 106 mmol/L (96-114); Potassium* 3.8 mmol/L (3.6-5.1); Sodium* 133 mmol/L (135-149)
[2024-04-01 06:42] LABS: Creatinine* 0.6 mg/dL (0.5-1.5); Est. Creatinine Clearance* 138.17; Estimated Glomerular Filt Rate 127 ml/min
[2024-04-01 06:43] LABS: Alanine Aminotransferase* 11 U/L (4-35); Alkaline Phosphatase* 93 U/L (40-150); Anion Gap 5 mEq/L (7-15); Aspartate Amino Transferase* 18 U/L (12-35); Bilirubin Total* 0.1 mg/dL (0.1-1.5); Blood Urea Nitrogen* 12 mg/dL (5-24); Carbon Dioxide* 22 mmol/L (20-32); Glucose* 97 mg/dL (60-115); Total Protein* 5.3 g/dL (6.0-8.3)
[2024-04-01 06:44] LABS: Calcium* 8.9 mg/dL (8.4-10.6)
--- NOTE | 2024-04-01 07:22 | PM.OBPNVD1 ---
OB - PN:Subj Subjective Narrative: Patient seen today on PP day []. Doing well. [] Pain under control with ibuprofen. Lochia decreasing. Ambulating. Tolerating diet. Normal urination. going well. Baby doing well. OB - PN: Obj Exam Physical Exam: Vital signs: Temp Pulse Resp BP Pulse Ox O2 Del Method 97.3 F L 93 18 112/75 96 Room Air 04/01/24 05:11 04/01/24 05:11 04/01/24 05:11 04/01/24 05:11 04/01/24 05:11 04/01/24 05:11 Narrative: Gen: NAD CV: RRR, normal S1,S2, no murmurs Resp: normal rate and effort, clear to auscultation Abd: Soft, uterus firm and nontender at umbilicus Ext: Warm, dry, 2+ pedal pulses, no edema b/l. Calves non-tender to palpation. Mood: Appropriate OB - PN: Obj Data Labs Labs: Laboratory Results - last 24 hr 03/31/24 03/31/24 03/31/24 11:10 14:22 16:57 WBC 19.79 H RBC 3.81 L Hgb 9.8 L 8.0 L Hct 31.3 L MCV 82 MCH 26 MCHC 31 L RDW Coeff of Ghassan Plt Count 325 Neut % (Auto) Lymph % (Auto) [place] % (Auto) Eos % (Auto) Baso % (Auto) Neut # (Auto) Lymph # (Auto) [place] # (Auto) Eos # (Auto) Baso # (Auto) Abs Immat Gran (auto) Imm/Tot Granulo (auto) Sodium 131 L Potassium 3.5 L Chloride 105 Carbon Dioxide 19 L Anion Gap 7 BUN 10 Creatinine 0.6 Estimated Creat Clear 138.17 Estimated GFR 127 Glucose 119 H Calcium 8.6 Total Bilirubin 0.3 AST 17 ALT 12 Alkaline Phosphatase 91 NT-Pro-B Natriuret Pep < 20 Total Protein 5.6 L Albumin 2.9 L 04/01/24 06:10 WBC 11.58 H RBC 2.88 L Hgb 7.4 L* Hct 23.3 L MCV 81 MCH 26 MCHC 32 RDW Coeff of Ghassan 14.5 Plt Count 235 Neut % (Auto) 65.2 Lymph % (Auto) 27.5 [place] % (Auto) 5.4 Eos % (Auto) 1.2 Baso % (Auto) 0.3 Neut # (Auto) 7.60 H Lymph # (Auto) 3.20 H [place] # (Auto) 0.60 Eos # (Auto) 0.10 Baso # (Auto) 0.00 Abs Immat Gran (auto) 0.00 Imm/Tot Granulo (auto) 0.4 Sodium 133 L Potassium 3.8 Chloride 106 Carbon Dioxide 22 Anion Gap 5 L BUN 12 Creatinine 0.6 Estimated Creat Clear 138.17 Estimated GFR 127 Glucose 97 Calcium 8.9 Total Bilirubin 0.1 AST 18 ALT 11 Alkaline Phosphatase 93 NT-Pro-B Natriuret Pep Total Protein 5.3 L Albumin 2.7 L OB - PN: A/P Delivery Assessment and Plan (1) Term : Problem details: 40+2 weeks. GBS positive. Complicated by maternal obesity with pre-preg BMI 42 and exposure to pertussis at 39 weeks, completed 1 dose of prophylactic abx. Received adequate GBS antibiotics prior to Status: Acute (2) hemorrhage: Problem details: QBL of 800, received pitocin, cytotec, TXA. Had brisk bleed from laceration site that resolved after repair. Continues to be tachycardic. Hemoglobin 10.1 to 7.4. Status: Acute (3) Tachycardia: Problem details: Had been tachycardic since epidural and receiving several doses of meds for hypotension. Had hemorrhage. HR has improved from 140s to 110s since delivery, now less than 100bpm. Given SOB, PE study was completed and was reassuring. Borderline cardiomegaly. Patient has clear lung sounds and feels well at rest. EKG showed sinus tachycardia. Status: Acute Assessment and Plan: -- Highly encouraged 1u pRBC due to hemoglobin of 7.4 (transfusion goal <8.0) (4) LLOYD (dyspnea on exertion): Problem details: PE study reassuring. Dyspneic on activity. May be due to blood loss and anemia (hb 7.4 on 04/01) Status: Acute (5) Low urine output: Problem details: Patient presented in labor and had been vomiting. Received 3 liters IV fluids in labor. Minimal urine output initially (125 +130 mls). Bladder scan showed 180s residual. Patient is drinking well. Serum creatinine was drawn and was reassuring. Now with 1175ml + 1 undocumented urine in last 24h. Status: Acute (6) Hyponatremia: Problem details: Na 131-133, likely pseudohyponatremia due to IVF. Status: Acute Plan Comments: Plan: -- Continue current cares. -- Encourage ambulation. -- Take Vitamins while . -- Colace for constipation prophylaxis.
[2024-04-01 08:08] VITALS: BP 102/71; PULSE 94; RESP 18; TEMP 36.7; O2SAT 97
[2024-04-01 16:13] LABS: Rapid Plasma Reagin (RPR) Non Reactive (Non Reactive)
--- NOTE | 2024-04-01 20:30 | P.DS_ITS ---
DS: Providers Provider Date Seen: 04/01/24 Date of admission: 03/31/24 01:38 Primary care physician: Tammy Ryder MD Admitting Clinician: Brandie Wang MD Attending Physician on discharge: Brandie Wang MD DS: Diagnosis Discharge Diagnosis (1) Hyponatremia: Status: Acute Problem details: Na 133 at discharge, likely pseudohyponatremia due to IVF. (2) Low urine output: Status: Acute Problem details: Patient presented in labor and had been vomiting. Received 3 liters IV fluids in labor. Minimal urine output initially (125 +130 mls). Bladder scan showed 180s residual. Patient is drinking well. Serum creatinine was drawn and was reassuring. Now with 1175ml + 1 undocumented urine in last 24h. (3) LLOYD (dyspnea on exertion): Status: Acute Problem details: PE study reassuring. Dyspneic on activity, unclear if resolved prior to discharge. May be due to blood loss and anemia (hb 7.4 on 04/01) (4) Tachycardia: Status: Acute Problem details: Had been tachycardic after epidural and receiving several doses of meds for hypotension. Had hemorrhage. HR has improved from 140s to 110s since delivery, now less than 100bpm. Given SOB, PE study was completed and was reassuring. Borderline cardiomegaly. Patient has clear lung sounds and feels well at rest. EKG showed sinus tachycardia. BNP <20, no Echo completed. (5) hemorrhage: Status: Acute Problem details: QBL of 800, received pitocin, cytotec, TXA. Had brisk bleed from laceration site that resolved after repair. Had been tachycardic. Hemoglobin 10.1 to 7.4 at discharge. Patient declined blood transfusion and IV iron. She will consider OTC iron supplements. (6) Term : Status: Acute Problem details: 40+2 weeks. GBS positive. Complicated by maternal obesity with pre-preg BMI 42 and exposure to pertussis at 39 weeks, completed 1 dose of prophylactic abx. Received adequate GBS antibiotics prior to Exam Narrative: Exam Narrative: Gen: No acute distress CV: Regular rate and rhythm, normal S1,S2, no murmurs Resp: Normal rate and effort, clear to auscultation bilaterally Abd: Soft, uterus firm and somewhat tender at umbilicus Ext: Warm, dry, puffy feet / ankles without pitting edema. Calves non-tender to palpation. Const: Vital Signs, click to edit/add: Vital Signs - 24 hr 03/31/24 23:57 04/01/24 05:11 04/01/24 08:08 Temperature 97.8 F 97.3 F L 98.0 F Pulse Rate [Pulse Oximeter] 97 93 94 Respiratory Rate 18 18 18 Blood Pressure [Le ft Arm] 105/69 112/75 102/71 Pulse Oximetry 95 96 97 Oxygen Delivery Me thod Room Air Room Air Room Air OB - DS: Summary Hospital Course Hospital Course: The patient is a 24 year old G 3 P 2 at 40.2 weeks gestation that was admitted to the Center on 03/31/24 for spontaneous labor. She had an uncomplicated delivery with complicated course: hemorrhage (800cc), perineal laceration, maternal tachycardia with low urine output and dyspnea on exertion. EKG sinus tachycardia. CT PE negative for PE with borderline cardiomegaly. BNP reassuring at <20. No echo performed. Tachycardia improved, <100 at time of discharge. She has low urine output despite 3L IVF during labor/delivery, improved prior to discharge. Her hemoglobin continued to drop, on day of discharge hemoglobin was 7.4. Patient was recommended to have blood transfusion, declined. Declined IV iron as well. Desired discharge. She was GBS positive and adequately treated. She did not have signs of infection and WBC was reassuring at time of discharge. She delivered a viable female infant. She is breast feeding. complicated by maternal obesity with pre- BMI of 42 and anemia with Hgb 9.9 on 03/13. Patient's daughter was also diagnosed with pertussis at 39 weeks. Patient and have completed prophylactic antibiotics and are asymptomatic. Feura Bush Gender: Female Status at Discharge Functional status at discharge: independent ambulation Overall status at discharge: patient is progressing back to baseline Time Spent with Patient Time attestation: Total time spent providing and/or coordinating discharge services: Discharge Plan Discharge Disposition: Home, Self-Care Date of Admission: 03/31/24 01:38 Attending Provider on Discharge: Dianne Jackson Discharge Medications: Continued acetaminophen 500 mg Tablet 1,000 mg PO Q6H PRN30 Days Qty: 30 0RF ibuprofen 600 mg Tablet 600 mg PO Q6H PRN30 Days Qty: 30 0RF Discharge Orders: Discharge Order (Routine); Ordered 04/01/24 Ordered By: Dianne Jackson Patient Education: Iron Deficiency Anemia (GEN), Dyspnea (DC), OB Care, OB Vaginal/Breast Feeding Additional Instructions: We remain concerned about the complications after delivery. Your tachycardia as well as low urine output was concerning for something called cardiomyopathy. It will be very important for you to monitor your heart rate and blood pressure at home. If your heart rate continues to remain above 100 please call to let us know. Other signs you may require more urgent intervention includes worsening vaginal bleeding, headaches, shortness of breath with or without exertion, unable to sleep lying flat, worsening swelling in upper/lower limbs. [facility] will give you a call to schedule an appointment tomorrow for repeat vitals and lab work. Activity Level: No Restrictions Discharge Diet: Regular Follow Up Appointments: Tammy Ryder MD [Primary Care Provider] - Forms: [facility] Info Instructions Discharge Comments: We remain concerned about the complications after delivery. Your tachycardia as well as low urine output was concerning for something called cardiomyopathy. It will be very important for you to monitor your heart rate and blood pressure at home. If your heart rate continues to remain above 100 please call to let us know. Other signs you may require more urgent intervention includes worsening vaginal bleeding, headaches, shortness of breath with or without exertion, unable to sleep lying flat, worsening swelling in upper/lower limbs. [facility] will give you a call to schedule an appointment tomorrow for repeat vitals and lab work. DS:Data Additional Comments Additional comments: - Recommend close interval follow-up given anemia, concerning tachycardia with low urine output and inability to assess stability/improvement over time at time of discharge. Recommend repeat CBC/CMP. - Anemia - continue to recommend blood transfusion, IV iron and at least OTC iron supplementation. - Encouraged her to return with any worsening symptoms.
== END 2024-04-01 13:10 | disposition home or self-care (01) | DRG 560 ==
LOC: OB OUT 01:38 → OB 01:38
PROVIDERS: Surgery; Admitting Provider Family Medicine; PCP Family Medicine; Visit Provider Family Medicine
DX: O21.8 Other vomiting complicating pregnancy (principal); O72.1 Other immediate postpartum hemorrhage; O99.892 Other specified diseases and conditions complicating childbirth; R00.0 Tachycardia, unspecified; R06.00 Dyspnea, unspecified; I95.89 Other hypotension; O90.49 Other postpartum acute kidney failure; O70.1 Second degree perineal laceration during delivery; E87.1 Hypo-osmolality and hyponatremia; O99.824 Streptococcus B carrier state complicating childbirth; O99.214 Obesity complicating childbirth; E66.9 Obesity, unspecified; O99.02 Anemia complicating childbirth; D64.9 Anemia, unspecified; D62 Acute posthemorrhagic anemia; Z3A.40 40 weeks gestation of pregnancy; Z37.0 Single live birth
CPT/HCPCS: 01967; 36415; 51798; 71275; 80053; 83880; 85018; 85025; 85027; 86592; 86850; 86900; 86901; G0463; A9270; J0290; J2003; J2371; J2795; J7120; Q9967